=== PATIENT | female | born 2000 | race Caucasian/White ===

== ENCOUNTER → 2020-04-23 | Outpatient (REF) | payer BC ==
[~2020-04-23] MED LIST: PERC5TAB12 PO; ROBA500T PO
[2020-04-23 20:12] LABS: CHLAMYDIA DNA AMPLIFICATION POSITIVE (NEGATIVE); GC DNA AMPLIFICATION NEGATIVE (NEGATIVE)
== END ==
LOC: M SFHCLERA 15:37
PROVIDERS: ATTEND Physician Assistant
DX: R30.0 Dysuria (principal); Z20.9 Contact with and (suspected) exposure to unspecified communicable disease; A60.00 Herpesviral infection of urogenital system, unspecified

== ENCOUNTER → 2021-03-28 | Outpatient (CLI) | payer BC ==
--- NOTE | 2021-03-30 01:33 | ECWPNPC ---
PATIENT NAME: HUYEN CONNORS : 2000 GENDER: FEMALE VISIT DATE: 03/28/2021 DISCHARGE DATE: 03/28/21912 VISIT LOCKED DATE TIME: PHYSICIAN: AMNA CABRERA RESOURCE: AMNA CABRERA REASON FOR APPOINTMENT 1. FIBROMYALGIA HISTORY OF PRESENT ILLNESS DEPRESSION SCREENING: PHQ-2 (2015 EDITION) LITTLE INTEREST OR PLEASURE IN DOING THINGS?NOT AT ALL FEELING DOWN, DEPRESSED, OR HOPELESS?NOT AT ALL TOTAL SCORE0 GENERAL: HPI 20-YEAR-OLD FEMALE IN FOR INITIAL PAIN CONSULT REGARDING FIBROMYALGIA. PATIENT ADMITS TO BEING ON GABAPENTIN 300 MG TWICE DAILY FOR THE PAST 5 YEARS TO NO AVAIL. SHE FURTHER STATES SHE IS TAKING CYMBALTA TO HELP WITH HER SYMPTOMS. SHE RATES HER PAIN CURRENTLY AT A 6 OUT OF 10 AND DESCRIBES IT ACHING, CONTINUOUS, TENDER, THROBBING, SORE, SHOOTING, AND A GRINDING PAIN.. - - -. FALL RISK SCREENING: SCREENING : NO FALLS REPORTED IN THE LAST YEAR , : NO FALLS REPORTED IN THE LAST YEAR. PAIN SCREENING: PATIENT HAS A COMPLAINT OF ACUTE OR CHRONIC PAIN :YES LOCATION OF PAIN:LOW BACK, LEFT HIP, RIGHT HIP, LEG(S) INTENSITY OF PAIN (SCALE OF 1 TO 10):6 WHAT DOES YOUR PAIN FEEL LIKE:ACHING, CONTINOUS, TENDER, THROBBING, SORE, SHOOTING, OTHER "GRINDING" INTERMITTENT SHOOTING. DURATION:CONTINOUS, CONSTANT, AWAKENS FROM SLEEP SOMETIMES WAKES HER AT NIGHT PAIN IS INCREASED BY:ACTIVITIES, PROLONGED STANDING PROLONGED SITTING, WEATHER, LACK OF SLEEP PAIN IS DECREASED BY:OTHERS HOT BATH NURSING NOTE: - - -. PAIN CENTER INTAKE QUESTIONS: DO YOU HAVE A HISTORY OF MRSA? :NO DO YOU TAKE A BLOOD THINNERS? :NO DO YOU HAVE ANY BLEEDING DISORDERS? :NO ANY NEW NUMBNESS OR WEAKNESS IN YOUR LEGS OR ARMS? :NO ANY PACEMAKER,DEFIBRILLATOR, OR DORSAL COLUMN STIMULATOR? :NO DO YOU HAVE ANY RASHES OR OPEN SORES? :NO ARE YOU ALLERGIC TO IV DYE? :NO ARE YOU DIABETIC? :NO ANY NEW PROBLEMS WITH YOUR MEDICATIONS? :NO HAVE YOU RECEIVED A VACCINE IN THE PAST 30 DAYS? :NO DO YOU PLAN TO RECEIVE A VACCINE IN THE NEXT 21 DAYS? :NO DO YOU NEED ANY PRESCRIPTION? :NO DO YOU TAKE ANY IMMUNOSUPPRESSIVE MEDICATIONS? :NO IS THERE A CHANCE YOU COULD BE ? :NO ARE YOU BREAST FEEDING? :NO CURRENT MEDICATIONS TAKING PROPRANOLOL HCL 20 MG TABLET 1 TABLET ORALLY ONCE A DAY TAKING WELLBUTRIN SR 150 MG TABLET EXTENDED RELEASE 12 HOUR 1 TABLET IN THE MORNING ORALLY ONCE A DAY TAKING SUMATRIPTAN SUCCINATE 25 MG TABLET 1 TABLET AT LEAST 2 HOURS BETWEEN DOSES NEEDED ORALLY TWICE A DAY TAKING LAMICTAL 100 MG TABLET 1 TABLET ORALLY ONCE A DAY, NOTES: 125 MG TAKING CYMBALTA 60 MG CAPSULE DELAYED RELEASE PARTICLES 1 CAPSULE ORALLY ONCE A DAY TAKING GABAPENTIN 300 MG CAPSULE 1 CAPSULE ORALLY BID TAKING VYVANSE 20 MG CAPSULE 1 CAPSULE IN THE MORNING ORALLY ONCE A DAY TAKING VALTREX 1 GM TABLET 1 TABLET ORALLY BID, NOTES: TAKES NEEDED NOT-TAKING MEDROL (YADIRA) NOT-TAKING CYMBALTA NOT-TAKING GABAPENTIN NOT-TAKING PROPRANOLOL HCL NOT-TAKING ZITHROMAX 500 MG TABLET 2 TABLETS ORALLY ONCE A DAY NOT-TAKING FLAGYL 500 MG TABLET 1 TABLET ORALLY BID MEDICATION LIST REVIEWED AND RECONCILED WITH THE PATIENT PAST MEDICAL HISTORY PTSD RECURRENT MAJOR DEPRESSIVE DISORDER PANIC DISORDER BINGE EATING DISORDER GENERALIZED ANXIETY DISORDER CHRONIC HEMATURIA 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 SURGICAL HISTORY APPENDECTOMY 2018 NASAL ENDOSCOPY/SEPTOPLASTY/TURBINATE REDUCTION 2019 FAMILY HISTORY FATHER: ALIVE, PTSD SEVERE ANGER ISSUES ALCOHOL ABUSE MOTHER: ALIVE, HYPERLIPIDEMIA PRECANCEROUS CELLS IN UTERUS, DIAGNOSED WITH HYPERTENSION, DIABETES 2 BROTHER(S) , 1 SISTER(S) - HEALTHY. SOCIAL HISTORY GENERAL: TOBACCO USE ARE YOU A:NONSMOKER LATEX QUESTIONNAIRE LATEX ALLERGY : HAVE YOU EVER DEVELOPED ANY TYPE OF REACTION AFTER HANDLING LATEX PRODUCTS SUCH RUBBER GLOVES, CONDOMS, DIAPHRAGMS, BALLOONS, SOCKS, OR UNDERWEAR?NO LATEX ALLERGY : HAVE YOU EVER DEVELOPED ANY TYPE OF REACTION DURING OR AFTER DENTAL APPOINTMENT, VAGINAL/RECTAL EXAMINATION, SURGICAL PROCEDURE, OR ANY OTHER EXPOSURE?NO LATEX RISK : HAVE YOU EVER HAD ANY DIFFICULTY BREATHING OR HIVES AFTER EATING OR HANDLING ANY FRUITS, OR VEGETABLES; SUCH KIWI, BANANAS, STONE FRUITS, OR CHESTNUTSNO LATEX RISK : DO YOU HAVE A PREVIOUS PERSONAL HISTORY OF MORE THAN NINE SURGERIES, SPINA BIFIDA, OR REPEATED CATHERIZATIONS? NO LATEX RISK : ARE YOU FREQUENTLY EXPOSED TO LATEX PRODUCTS IN YOUR OCCUPATION?NO DATE ASKED : 03/28/2021 ALCOHOL USE: NO. ALCOHOL SCREENING DID YOU HAVE A DRINK CONTAINING ALCOHOL IN THE PAST YEAR?YES HOW OFTEN DID YOU HAVE A DRINK CONTAINING ALCOHOL IN THE PAST YEAR?TWO TO FOUR TIMES A MONTH (2 POINTS) HOW MANY DRINKS DID YOU HAVE ON A TYPICAL DAY WHEN YOU WERE DRINKING IN THE PAST YEAR?1 OR 2 (0 POINTS) HOW OFTEN DID YOU HAVE SIX OR MORE DRINKS ON ONE OCCASION IN THE PAST YEAR?NEVER (0 POINTS) POINTS2 INTERPRETATIONNEGATIVE RECREATIONAL DRUG USE DRUG USE?NO LANGUAGE LANGUAGES SPOKEN:NORWEGIAN EDUCATION LEVEL OF EDUCATION:NOT FINISHED COLLEGE LEARNING BARRIERS / SPECIAL NEEDS BARRIERS TO LEARNING?NO HEARING IMPAIRED?NO VISION IMPAIRED?NO COGNITIVELY IMPAIRED?NO READINESS TO LEARN?YES LEARNING PREFERENCES?NO LEARNING CAPABILITIES PRESENT?YES EMOTIONAL BARRIERS?NO SPECIAL DEVICES?NO COMPRESSOR MECHANIC BUS NEEDED?NO DOMESTIC VIOLENCE DO YOU FEEL SAFE IN YOUR ENVIRONMENT?YES OCCUPATION: WORKS AT A [employer]. DIET: REGULAR. EXERCISE: WALKS, STRETCHING. MARITAL STATUS: SINGLE. - HAS THE PATIENT BEEN EDUCATED REGARDING HIS/HER PLAN OF CARE?YES HAS THE PATIENT BEEN EDUCATED REGARDING PAIN, THE RISK FOR PAIN, THE IMPORTANCE OF EFFECTIVE PAIN MANAGEMENT, AND THE PAIN ASSESSMENT PROCESS?YES ADVANCE DIRECTIVE ADVANCE DIRECTIVE DISCUSSED WITH PATIENT:YES PATIENT DOES NOT HAVE ANY ADVANCED DIRECTIVES AND DECLINES INFORMATION ON HCP AT THIS TIME HOSPITALIZATION/MAJOR DIAGNOSTIC PROCEDURE SURGERY RELATED PNEUMONIA 2019 REVIEW OF SYSTEMS CONSTITUTIONAL: ANY RECENT FEVER NO . CHILLS NO . WEIGHT CHANGE OF UNKNOWN REASONS NO . MUSCULOSKELETAL: ANY UNUSUAL JOINT PAIN OR SWELLING NOT MENTIONED NO . SYSTEMIC LUPUS NO . ANY NEUROMUSCULAR DISORDER NOT MENTIONED NO . LYME DISEASE NO . GASTROENTEROLOGY: ANY NEW CHANGE IN BOWEL CONTROL? NO . HISTORY OF LIVER DISORDER NOT MENTIONED NO . HISTORY OF UNUSUAL ABDOMINAL PAIN OR CRAMPING NOT MENTIONED NO . NO CONSTIPATION. GENITOURINARY: ANY NEW CHANGE IN BLADDER CONTROL? NO . ANY RENAL/KIDNEY CONDITON NOT MENTIONED NO . NEUROLOGY: HISTORY OF TBI NOT MENTIONED NO . OTHER NEW NUMBNESS OR PAIN PATTERNS NOT MENTIONED NO . NEW ONSET DIZZINESS OR NEUROLOGICAL CHANGES NOT MENTIONED NO . HISTORY OF SEVERE HEADACHES NOT MENTIONED NO . HISTORY OF STROKE OR NEUROLOGICAL DISORDER NOT MENTIONED NO . CARDIOLOGY: HEART SURGERY NO . CONGESTIVE HEART FAILURE/FLUID OVERLOAD NOT MENTIONED NO . HISTORY OF CHEST PAIN,IRREGULAR HEART BEAT NOT MENTIONED NO . RESPIRATORY: SHORTNESS OF BREATH ON EXERTION, WHEEZES, UNUSUAL COUGH NOT MENTIONED NO . ENDOCRINOLOGY: ADRENAL GLAND OR THYROID DISORDERS NOT MENTIONED NO . UNUSUAL URINATION, DIZZINESS OR LETHARGY NOT MENTIONED NO . VITAL SIGNS WT 177.0 LBS, HT 64 IN, BMI 30.38 INDEX, BP 125/65 MM HG, HR 95 /MIN, RR 18 /MIN, TEMP 97.8 F, OXYGEN SAT % 100%, SAFE IN ENV? (Y/N) Y, NA INITIALS AW 0832, REVIEWED BY: Karie WORTHINGTON RN, LMP: 02/08/21. EXAMINATION GENERAL EXAMINATION: GENERALNO ACUTE DISTRESS, WELL NOURISHED AND HYDRATED. PSYCHAPPROPRIATE MOOD AND AFFECT . LUNGS:CLEAR TO AUSCULTATION BILATERALLY, NO WHEEZES, RHONCHI, RALES. HEART:NO MURMURS, REGULAR RATE AND RHYTHM. ASSESSMENTS FIBROMYALGIA - M79.7 (PRIMARY) TREATMENT FIBROMYALGIA START LYRICA CAPSULE, 75 MG, 1 CAPSULE, ORALLY, TWICE A DAY, 30 DAYS, 60 NOTES: 20-YEAR-OLD FEMALE IN FOR INITIAL PAIN CONSULT REGARDING FIBROMYALGIA. GIVEN PRESENTING SYMPTOMS RECOMMEND TAPERING OFF GABAPENTIN. TAPERING GABAPENTIN DOSE FOLLOWS 300 MG 1 CAPSULE DAILY X1 WEEK THEN 300 MG 1 CAPSULE EVERY OTHER DAY X1 WEEK THEN STOP. WE WILL START LYRICA 75 MG TWICE DAILY AND FOLLOW-UP IN 1 MONTH TO DETERMINE EFFICACY OF TREATMENT. PATIENT HAS EXPRESSED UNDERSTANDING OF AND WAS IN AGREEMENT WITH TREATMENT PLAN. GIVEN TIME ASKED QUESTIONS AND EXPRESS CONCERNS. ISTOP REGISTRY REVIEWED AND DEMONSTRATES COMPLLIANCE. (REF #[id number] ). PROCEDURE CODES FA211 ESTABILISHED PATIENT [facility] CHARGE DISPOSITION & COMMUNICATION ELECTRONICALLY SIGNED BY LYNETTE GREGORIO ON 03/29/2021 AT 09:00 AM EDT DISCLAIMER : THIS IS A VISIT SUMMARY EXTRACTED FROM THE [employer] CHART. IT IS NOT A COPY OF THE [employer] PROGRESS NOTE. MTDD
== END ==
LOC: M PAIN 08:30
PROVIDERS: ATTEND Family Medicine
DX: M79.7 Fibromyalgia (principal); F43.10 Post-traumatic stress disorder, unspecified; F33.9 Major depressive disorder, recurrent, unspecified; F41.0 Panic disorder [episodic paroxysmal anxiety]; F41.1 Generalized anxiety disorder; M51.16 Intervertebral disc disorders with radiculopathy, lumbar region; N94.6 Dysmenorrhea, unspecified; Z79.899 Other long term (current) drug therapy

== ENCOUNTER → 2021-04-28 | Outpatient (CLI) | payer BC ==
--- NOTE | 2021-05-02 00:47 | ECWPNPC ---
PATIENT NAME: HUYEN CONNORS : 2000 GENDER: FEMALE VISIT DATE: 04/28/2021 DISCHARGE DATE: 04/28/21 1006 VISIT LOCKED DATE TIME: PHYSICIAN: AMNA CBARERA RESOURCE: AMNA CABRERA REASON FOR APPOINTMENT 1. FIBROMYALGIA HISTORY OF PRESENT ILLNESS GENERAL: HPI 20-YEAR-OLD FEMALE IN FOR CHRONIC PAIN FOLLOW-UP. SHE RATES HER PAIN CURRENTLY A 5 OUT OF 10 AND DESCRIBES IT CONTINUOUS AND THROBBING. AT LAST CLINIC VISIT PATIENT WAS STARTED ON LYRICA AND SHE ADMITS TODAY THAT THIS WAS BENEFICIAL HOWEVER IT DOES NOT COMPLETELY COVER HER PAIN.. -. FALL RISK SCREENING: SCREENING : NO FALLS REPORTED IN THE LAST YEAR. PAIN SCREENING: PATIENT HAS A COMPLAINT OF ACUTE OR CHRONIC PAIN :YES LOCATION OF PAIN:OTHER: FIBROMYALGIA. INTENSITY OF PAIN (SCALE OF 1 TO 10):5 WHAT DOES YOUR PAIN FEEL LIKE:CONTINOUS, THROBBING DURATION:CONTINOUS, CONSTANT, AWAKENS FROM SLEEP PAIN IS INCREASED BY:ACTIVITIES, PROLONGED STANDING PAIN IS DECREASED BY:OTHERS HEAT NURSING NOTE: -. PAIN CENTER INTAKE QUESTIONS: DO YOU HAVE A HISTORY OF MRSA? :NO DO YOU TAKE A BLOOD THINNERS? :NO DO YOU HAVE ANY BLEEDING DISORDERS? :NO ANY NEW NUMBNESS OR WEAKNESS IN YOUR LEGS OR ARMS? :NO ANY PACEMAKER,DEFIBRILLATOR, OR DORSAL COLUMN STIMULATOR? :NO DO YOU HAVE ANY RASHES OR OPEN SORES? :NO ARE YOU ALLERGIC TO IV DYE? :NO ARE YOU DIABETIC? :NO ANY NEW PROBLEMS WITH YOUR MEDICATIONS? :NO HAVE YOU RECEIVED A VACCINE IN THE PAST 30 DAYS? :NO DO YOU PLAN TO RECEIVE A VACCINE IN THE NEXT 21 DAYS? :NO DO YOU NEED ANY PRESCRIPTION? :YES LYRICA 75 MG DO YOU TAKE ANY IMMUNOSUPPRESSIVE MEDICATIONS? :NO IS THERE A CHANCE YOU COULD BE ? :NO ARE YOU BREAST FEEDING? :NO CURRENT MEDICATIONS TAKING PROPRANOLOL HCL 20 MG TABLET 1 TABLET ORALLY ONCE A DAY TAKING WELLBUTRIN SR 150 MG TABLET EXTENDED RELEASE 12 HOUR 1 TABLET IN THE MORNING ORALLY ONCE A DAY TAKING SUMATRIPTAN SUCCINATE 25 MG TABLET 1 TABLET AT LEAST 2 HOURS BETWEEN DOSES NEEDED ORALLY TWICE A DAY TAKING LAMICTAL 100 MG TABLET 1 TABLET ORALLY ONCE A DAY, NOTES: 125 MG TAKING CYMBALTA 60 MG CAPSULE DELAYED RELEASE PARTICLES 1 CAPSULE ORALLY ONCE A DAY TAKING VYVANSE 30 MG CAPSULE 1 CAPSULE IN THE MORNING ORALLY ONCE A DAY TAKING VALTREX 1 GM TABLET 1 TABLET ORALLY BID, NOTES: TAKES NEEDED TAKING LYRICA 75 MG CAPSULE 1 CAPSULE ORALLY TWICE A DAY NOT-TAKING GABAPENTIN 300 MG CAPSULE 1 CAPSULE ORALLY BID NOT-TAKING MEDROL (YADIRA) NOT-TAKING CYMBALTA NOT-TAKING GABAPENTIN NOT-TAKING PROPRANOLOL HCL NOT-TAKING ZITHROMAX 500 MG TABLET 2 TABLETS ORALLY ONCE A DAY NOT-TAKING FLAGYL 500 MG TABLET 1 TABLET ORALLY BID MEDICATION LIST REVIEWED AND RECONCILED WITH THE PATIENT PAST MEDICAL HISTORY PTSD RECURRENT MAJOR DEPRESSIVE DISORDER PANIC DISORDER BINGE EATING DISORDER GENERALIZED ANXIETY DISORDER CHRONIC HEMATURIA 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 SOCIAL HISTORY GENERAL: TOBACCO USE ARE YOU A:NONSMOKER FORMER SMOKER LATEX QUESTIONNAIRE LATEX ALLERGY : HAVE YOU EVER DEVELOPED ANY TYPE OF REACTION AFTER HANDLING LATEX PRODUCTS SUCH RUBBER GLOVES, CONDOMS, DIAPHRAGMS, BALLOONS, SOCKS, OR UNDERWEAR?NO LATEX ALLERGY : HAVE YOU EVER DEVELOPED ANY TYPE OF REACTION DURING OR AFTER DENTAL APPOINTMENT, VAGINAL/RECTAL EXAMINATION, SURGICAL PROCEDURE, OR ANY OTHER EXPOSURE?NO LATEX RISK : HAVE YOU EVER HAD ANY DIFFICULTY BREATHING OR HIVES AFTER EATING OR HANDLING ANY FRUITS, OR VEGETABLES; SUCH KIWI, BANANAS, STONE FRUITS, OR CHESTNUTSNO LATEX RISK : DO YOU HAVE A PREVIOUS PERSONAL HISTORY OF MORE THAN NINE SURGERIES, SPINA BIFIDA, OR REPEATED CATHERIZATIONS? NO LATEX RISK : ARE YOU FREQUENTLY EXPOSED TO LATEX PRODUCTS IN YOUR OCCUPATION?NO DATE ASKED : 04/28/2021 ALCOHOL USE: NO. ALCOHOL SCREENING DID YOU HAVE A DRINK CONTAINING ALCOHOL IN THE PAST YEAR?YES HOW OFTEN DID YOU HAVE SIX OR MORE DRINKS ON ONE OCCASION IN THE PAST YEAR?NEVER (0 POINTS) HOW MANY DRINKS DID YOU HAVE ON A TYPICAL DAY WHEN YOU WERE DRINKING IN THE PAST YEAR?1 OR 2 (0 POINTS) HOW OFTEN DID YOU HAVE A DRINK CONTAINING ALCOHOL IN THE PAST YEAR?TWO TO FOUR TIMES A MONTH (2 POINTS) POINTS2 INTERPRETATIONNEGATIVE RECREATIONAL DRUG USE DRUG USE?NO LANGUAGE LANGUAGES SPOKEN:SERBIAN EDUCATION LEVEL OF EDUCATION:NOT FINISHED COLLEGE LEARNING BARRIERS / SPECIAL NEEDS CHANGE FROM LAST VISIT?NO BARRIERS TO LEARNING?NO HEARING IMPAIRED?NO VISION IMPAIRED?NO COGNITIVELY IMPAIRED?YES : SOME TIMES READINESS TO LEARN?YES LEARNING PREFERENCES?NO LEARNING CAPABILITIES PRESENT?YES EMOTIONAL BARRIERS?NO SPECIAL DEVICES?NO TRANSFORMATION LEAD NEEDED?NO DOMESTIC VIOLENCE DO YOU FEEL SAFE IN YOUR ENVIRONMENT?YES OCCUPATION: WORKS AT A [employer]. DIET: REGULAR. EXERCISE: WALKS, STRETCHING. MARITAL STATUS: SINGLE. - HAS THE PATIENT BEEN EDUCATED REGARDING HIS/HER PLAN OF CARE?YES HAS THE PATIENT BEEN EDUCATED REGARDING PAIN, THE RISK FOR PAIN, THE IMPORTANCE OF EFFECTIVE PAIN MANAGEMENT, AND THE PAIN ASSESSMENT PROCESS?YES ADVANCE DIRECTIVE ADVANCE DIRECTIVE DISCUSSED WITH PATIENT:YES PATIENT DOES NOT HAVE ANY ADVANCED DIRECTIVES AND DECLINES INFORMATION ON HCP AT THIS TIME REVIEW OF SYSTEMS CONSTITUTIONAL: ANY RECENT FEVER NO . CHILLS NO . WEIGHT CHANGE OF UNKNOWN REASONS NO . GASTROENTEROLOGY: NEW UNEXPLAINABLE CHANGES IN BOWEL CONTROL NO . CONSTIPATION NO . GENITOURINARY: ANY NEW CHANGE IN BLADDER CONTROL? NO . NEUROLOGY: NEW ONSET DIZZINESS OR NEUROLOGICAL CHANGES NOT MENTIONED NO . NEW NUMBNESS OR PAIN PATTERNS NOT MENTIONED AND PERTINENT TO TODAY'S VISIT NO . CARDIOLOGY: NEW CHEST PRESSURE NO . PATIENT DENIES NO . RESPIRATORY: UNEXPLAINABLE COUGH NO . NEW SHORTNESS OF BREATH NO . VITAL SIGNS WT 179.2 LBS, HT 64 IN, BMI 30.76 INDEX, BP 129/67 MM HG, HR 83 /MIN, RR 18 /MIN, TEMP 97.6 F, OXYGEN SAT % 96%, SAFE IN ENV? (Y/N) YES, NA INITIALS AW 0954T.DAVID SAGE. EXAMINATION GENERAL EXAMINATION: GENERALNO ACUTE DISTRESS, WELL NOURISHED AND HYDRATED. PSYCHAPPROPRIATE MOOD AND AFFECT . LUNGS:CLEAR TO AUSCULTATION BILATERALLY, NO WHEEZES, RHONCHI, RALES. HEART:NO MURMURS, REGULAR RATE AND RHYTHM. ASSESSMENTS FIBROMYALGIA - M79.7 TREATMENT FIBROMYALGIA INCREASE LYRICA CAPSULE, 100 MG, 1 CAPSULE, ORALLY, TWICE A DAY, 30 DAYS, 60 CAPSULE, REFILLS 1 NOTES: 20-YEAR-OLD FEMALE FOR CHRONIC PAIN FOLLOW-UP. GIVEN PRESENTING SYMPTOMS RECOMMEND INCREASING LYRICA TO 100 MG TWICE DAILY WITH FOLLOW-UP IN 2 MONTHS TO DETERMINE EFFICACY OF TREATMENT. PATIENT IS EXPRESSED UNDERSTANDING OF AND WAS IN AGREEMENT WITH TREATMENT PLAN. GIVEN TIME TO ASK QUESTIONS AND EXPRESS CONCERNS. ISTOP REGISTRY REVIEWED AND DEMONSTRATES COMPLLIANCE. (REF # [id number] ). PROCEDURE CODES FA211 ESTABILISHED PATIENT [facility] CHARGE DISPOSITION & COMMUNICATION FOLLOW UP 2 MONTHS (REASON: MEDICATION INCREASE ) ELECTRONICALLY SIGNED BY LYNETTE GREGORIO ON 05/01/2021 AT 08:20 AM EDT DISCLAIMER : THIS IS A VISIT SUMMARY EXTRACTED FROM THE [employer] CHART. IT IS NOT A COPY OF THE [employer] PROGRESS NOTE. JEAN CLAUDE
== END ==
LOC: M PAIN 10:00
PROVIDERS: ATTEND Family Medicine
DX: M79.7 Fibromyalgia (principal); F43.10 Post-traumatic stress disorder, unspecified; F33.9 Major depressive disorder, recurrent, unspecified; F41.0 Panic disorder [episodic paroxysmal anxiety]; F50.81 Binge eating disorder; F41.1 Generalized anxiety disorder; M51.16 Intervertebral disc disorders with radiculopathy, lumbar region; N94.6 Dysmenorrhea, unspecified; Z87.891 Personal history of nicotine dependence; Z79.899 Other long term (current) drug therapy

== ENCOUNTER → 2021-06-29 | Outpatient (CLI) | payer BC | LOC: M PAIN 10:30 | PROVIDERS: ATTEND Anesthesiology | DX: M79.7 Fibromyalgia (principal); F43.10 Post-traumatic stress disorder, unspecified; F33.9 Major depressive disorder, recurrent, unspecified; F41.0 Panic disorder [episodic paroxysmal anxiety]; Z79.891 Long term (current) use of opiate analgesic; Z79.899 Other long term (current) drug therapy ==

== ENCOUNTER → 2021-08-11 | Outpatient (CLI) | payer BC | LOC: M PAIN 13:30 | PROVIDERS: ATTEND Anesthesiology | DX: M79.7 Fibromyalgia (principal); M51.16 Intervertebral disc disorders with radiculopathy, lumbar region; M25.551 Pain in right hip; M25.552 Pain in left hip; M79.661 Pain in right lower leg; M79.662 Pain in left lower leg; F43.10 Post-traumatic stress disorder, unspecified; F33.9 Major depressive disorder, recurrent, unspecified; F41.0 Panic disorder [episodic paroxysmal anxiety]; F41.1 Generalized anxiety disorder; F50.81 Binge eating disorder; Z87.891 Personal history of nicotine dependence; Z79.899 Other long term (current) drug therapy ==

== ENCOUNTER 2021-09-09 12:37 | Emergency (ER) | payer BC ==
[~2021-09-09] VITALS: Ht 162.6 cm; Wt 82.6 kg
--- OUTSIDE RECORDS SUMMARY | 2021-09-09 12:46 | CCD ---
Author Author [employer] [facility] [employer] Organization [employer] Address Unknown Phone Unavailable Care Team Providers Care Fish Boning Machine Feeder Name Role Phone Allen, Tate Unavailable PROBLEMS Type Condition ICD9-CM Code XST51-IA Code Onset Dates Condition S tatus W/U Status Risk SNOMED Code Notes Problem Genital herpes simplex, unspecified site A60.00 Active confirmed 88179616 Problem Fibromyalgia M79.7 Active confirmed 8901837 05 ALLERGIES No Known Allergies ENCOUNTERS from 2000 to 2021-08-29 Encounter Location Date Provider Diagnosis [facility] [address] Floor [phone] [place] [address] Aug, Tate Allen IMMUNIZATIONS No Information SOCIAL HISTORY Tobacco Use: Social History Observation Description Date Details (start date - stop date) Never Smoker Sex Assigned At : Social History Observation Description Sex Assigned At Unknown Education: Question Answer Notes Level of Education: Not Finished College Language: Question Answer Notes Languages spoken: Lithuanian Alcohol Screening: Question Answer Notes Did you have a drink containing alcohol in the past year? Ye s Points 2 Interpretation Negative How often did you have six or more drinks on one occas ion in the past year? Never (0 points) How many drinks did you have on a typica l day when you were drinking in the past year? 1 or 2 (0 points) How often did you have a drink containing alcohol in t he past year? Two to four times a month (2 points) Tobacco Use: Question Answer Notes Are you a: never smoker former smoker REASON FOR REFERRAL No Information VITAL SIGNS No information MEDICATIONS Medication SIG (Take, Route, Frequency, Duration) Notes Start Da te End Date Status Valtrex 1 GM 1 tablet Orally bid for 10 day(s) Takes as needed Apr Active Propranolol HCl Not-Takin g Gabapentin Not-Taking Cymbalta 60 MG 1 capsule Orally Twice a day for 30 days Active Ibuprofen 800 MG 1 tablet with food or milk a s needed Orally Three times a day for 30 days Jun, Active Wellbutrin SR 150 MG 1 tablet in the morning Orally Once a day f or 30 day(s) Not-Taking Lyrica 150 MG 1 capsule Orally Twice a day for 30 days Aug, Active Cymbalta Not-Taking Propranolol HCl 20 MG 1 tablet Orally Once a day for 30 day( s) when heart rate increases Active Medrol (Leif) Not-Taking Zithromax 500 MG 2 tablets Orally Once a day for 1 days Apr, Not-Taking SUMAtriptan Succinate 25 MG 1 tablet at least 2 hours between doses as needed Orally Twice a day with migraines Active Vyvanse 30 MG 1 capsule in the morning Orally Once a day Active Flagyl 500 MG 1 tablet Orally bid for 7 day(s) Apr, 0 Not-Taking Gabapentin 300 MG 1 capsule Orally bid Not-Taking LaMICtal 100 MG 1 tablet Orally Once a day for 30 day(s) 125 MG Active PROCEDURES No Information RESULTS No Results REASON FOR VISIT DENIAL MRI PELVIS WITHOUT CONTRAST MEDICAL (GENERAL) HISTORY Type Description Date Medical History PTSD Medical History RECURRENT MAJOR DEPRESSIVE DISORDER Medical History PANIC DISORDER Medical History BINGE EATING DISORDER Medical History GENERALIZED ANXIETY DISORDER Medical History CHRONIC HEMATURIA Medical History 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 Medical History POTS Medical History TONSILLITIS Medical History DYSMENORRHEA Medical History dYSFUNCTIONAL UTERINE BLEEDING Medical History BULGING LUMBAR DISC Medical History LUMBAR RADICULOPATHY Medical History FIBROMYALGIA Surgical History APPENDECTOMY 2018 Surgical History NASAL ENDOSCOPY/SEPTOPLASTY/TURBINATE RE DUCTION 2019 Hospitalization History SURGERY RELATED Hospitalization History PNEUMONIA 2019 Goals Section No Information Health Concerns No Information MEDICAL EQUIPMENT No Information MENTAL STATUS No Information FUNCTIONAL STATUS No Information ASSESSMENTS No Information PLAN OF TREATMENT Medication Medication Name Sig Start Date Stop Date Ibuprofen 800 MG 1 tablet with food or milk a s needed Orally Three times a day for 30 days Jun, Lyrica 150 MG 1 capsule Orally Twice a day for 30 days Aug, Cymbalta 60 MG 1 capsule Orally Twice a day for 30 days Insurance Providers Payer Name Payer Address Payer Phone Insured Name Patient Relati onship to Insured Coverage Start Date Coverage End Date TIFFANIE BS PPO [address] [place] [id number] NORRIS CONNORS
--- OUTSIDE RECORDS SUMMARY | 2021-09-09 12:46 | CCD ---
Author Author [employer] [facility] Organization [employer] Address Unknown Phone Unavailable Care Team Providers Care Chief Catalyst Operator Name Role Phone Allen, Tate Unavailable PROBLEMS Type Condition ICD9-CM Code [id number] Code Onset Dates Condition S tatus W/U Status Risk SNOMED Code Notes Problem Genital herpes simplex, unspecified site A60.00 Active confirmed 03844397 Problem Fibromyalgia M79.7 Active confirmed [id number] 05 ALLERGIES No Known Allergies ENCOUNTERS from 1999 to 2021-07-28 Encounter Location Date Provider Diagnosis [facility] [address] Floor [phone] [place] [address] Jul, Tate Allen IMMUNIZATIONS No Information SOCIAL HISTORY Tobacco Use: Social History Observation Description Date Details (start date - stop date) Never Smoker Sex Assigned At : Social History Observation Description Sex Assigned At Unknown Education: Question Answer Notes Level of Education: Not Finished College Language: Question Answer Notes Languages spoken: Singaporean Alcohol Screening: Question Answer Notes Did you [...] 10 day(s) Takes as needed Apr Active Vyvanse 30 MG 1 capsule in the morning Orally Once a day Active Ibuprofen 800 MG 1 tablet with food or milk a s needed Orally Three times a day for 30 days Jun, Active LaMICtal 100 MG 1 tablet Orally Once a day for 30 day(s) 125 MG Active SUMAtriptan Succinate 25 MG 1 tablet at least 2 hours between doses as needed Orally Twice a day with migraines Active Zithromax 500 MG 2 tablets Orally Once a day for 1 days Apr, Unknown Cymbalta 60 MG 1 capsule Orally Twice a day for 30 day(s) Active Propranolol HCl Unknown Wellbutrin SR 150 MG 1 tablet in the morning Orally Once a day f or 30 day(s) Not-Taking Flagyl 500 MG 1 tablet Orally bid for 7 day(s) Apr, Unknown Cymbalta Unknown Gabapentin Unknown Medrol (Leif) Unknown Lyrica 100 MG 1 capsule Orally Twice a day for 30 days Jun, Active Propranolol HCl 20 MG 1 tablet Orally Once a day for 30 day( s) when heart rate increases Active Gabapentin 300 MG 1 capsule Orally bid Unknown PROCEDURES No Information RESULTS No Results REASON FOR VISIT PLEASE SCHEDULE F/U MEDICAL (GENERAL) HISTORY Type Description Date Medical [...] Medication Name Sig Start Date Stop Date Cymbalta 60 MG 1 capsule Orally Twice a day for 30 day(s) Lyrica 100 MG 1 capsule Orally Twice a day for 30 days Jun, Ibuprofen 800 MG 1 tablet with food or milk a s needed Orally Three times a day for 30 days Jun, Next Appt Details Provider Name:Tate Allen, 2021-08-11 01:30:00 PM, [address], , [place], [address], Insurance Providers Payer Name Payer Address Payer Phone Insured Name Patient Relati onship to Insured Coverage Start Date Coverage End Date TIFFANIE BS PPO [phone] [id number] NORRIS CONNORS
--- OUTSIDE RECORDS SUMMARY | 2021-09-09 12:46 | CCD ---
Author Author [facility] Organization [facility] Address Unknown Phone Unavailable Care Team Providers Care Principal Secretary Name Role Phone Grupoearl Win Unavailable PROBLEMS Type Condition ICD9-CM Code [id number] Code Onset Dates Condition S tatus W/U Status Risk SNOMED Code Notes Problem Genital herpes simplex, unspecified site A60.00 Active confirmed 78964124 Problem Fibromyalgia M79.7 Active confirmed [id number] 05 ALLERGIES No Known Allergies ENCOUNTERS from 1999 to 2021-09-04 Encounter Location Date Provider Diagnosis [id number] [place] [address] Aug, Win Adam IMMUNIZATIONS No Information SOCIAL HISTORY Tobacco Use: Social History Observation Description Date Details (start date - stop date) Never Smoker Sex Assigned At : Social History Observation Description Sex Assigned At Unknown Education: Question Answer Notes Level of Education: Not Finished College Language: Question Answer Notes Languages spoken: Romansh Alcohol Screening: Question Answer Notes Did you [...] Information RESULTS No Results REASON FOR VISIT new patient apt MEDICAL (GENERAL) HISTORY Type Description Date Medical [...] Orally Twice a day for 30 days Next Appt Details Provider Name:Win Adam, 2021-11 08:30:00 AM, [address], , [place], [address], Insurance Providers Payer Name Payer Address Payer Phone Insured Name Patient Relati onship to Insured Coverage Start Date Coverage End Date TIFFANIE BS PPO [phone] [id number] [place]
--- OUTSIDE RECORDS SUMMARY | 2021-09-09 12:46 | CCD ---
Author Author [facility] Organization [facility] Address Unknown Phone Unavailable Care Team Providers Care Rollout Manager Name Role Phone Allen, Tate Unavailable PROBLEMS Type Condition ICD9-CM Code [id number] Code Onset Dates Condition S tatus W/U Status Risk SNOMED Code Notes Problem Genital herpes simplex, unspecified site A60.00 Active confirmed 90693353 Problem Fibromyalgia M79.7 Active confirmed 2565988 05 ALLERGIES No Known Allergies ENCOUNTERS from 1999 to 2021-07-13 Encounter Location Date Provider Diagnosis [facility] [address] Floor [phone] [place] [address] Jun, Tate Allen IMMUNIZATIONS No Information SOCIAL HISTORY Tobacco Use: Social History Observation Description Date Details (start date - stop date) Never Smoker Sex Assigned At : Social History Observation Description Sex Assigned At Unknown Education: Question Answer Notes Level of Education: Not Finished College Language: Question Answer Notes Languages spoken: Malagasy Alcohol Screening: Question Answer Notes Did you [...] Information RESULTS No Results REASON FOR VISIT FOLLOW UP AFTER PAIN APPOINTMENT MEDICAL (GENERAL) HISTORY Type Description Date Medical [...] times a day for 30 days Jun, Insurance Providers Payer Name Payer Address Payer Phone Insured Name Patient Relati onship to Insured Coverage Start Date Coverage End Date TIFFANIE BC[employer] PPO [phone] [phone] [place]
--- OUTSIDE RECORDS SUMMARY | 2021-09-09 12:46 | CCD ---
Author Author [facility] Organization [facility] Address Unknown Phone Unavailable Care Team Providers Care Admissions Supervisor Name Role Phone Tate Allen Unavailable PROBLEMS Type Condition ICD9-CM Code [id number] Code Onset Dates Condition S tatus W/U Status Risk SNOMED Code Notes Problem Genital herpes simplex, unspecified site A60.00 Active confirmed [id number] Problem Fibromyalgia M79.7 Active confirmed 3940924 05 ALLERGIES No Known Allergies ENCOUNTERS from 1999 to 2021-07-02 Encounter Location Date Provider Diagnosis [facility] [address] Floor [phone] [place] [address] Jun, Tate Allen Fibromyalgia M79.7 a nd Chronic prescription opiate use Z79.891 IMMUNIZATIONS No Information SOCIAL HISTORY Tobacco Use: Social History Observation Description Date Details (start date - stop date) Never Smoker Sex Assigned At : Social History Observation Description Sex Assigned At Unknown Education: Question Answer Notes Level of Education: Not Finished College Language: Question Answer Notes Languages spoken: Macanese Alcohol Screening: Question Answer Notes Did you [...] never smoker former smoker REASON FOR REFERRAL from 1999 to 2021-07-02 Reason 21 year old with history of fibromyalgia. Experiencing increased diffuse joint pain, fatigue. Please evaluate. Diagnosis 1 Fibromyalgia (M79.7) Referral Organization [facility] Pain Clinic Referring Provider First Name Tate Referring Provider Last Name Tiffany Referring Provider Specialty Pain Medicine Referred Organization [facility] Rheumatology Referred Provider Josie Foster Referred Address [address] [place] [phone] 8-[address], [place],[address] Referred Provider Specialty Rheumatology Referral Priority Routine Reason 21 year old female with incr eased diffuse joint pain, please evaluate. Diagnosis 1 Fibromyalgia (M79.7) Referral Organization [facility] Referring Provider First Name Tate Referring Provider Last Name Tiffany Referring Provider Specialty Pain Medicine [facility]erred Provider Specialty Unknown Referral Priority Routine VITAL SIGNS Weight 176.4 lbs Jun, Weight-kg 80.01 kg Jun, Height 64 in Jun, BMI 30.28 kg/m2 Jun, Heart Rate 96 /min Jun, Respiratory Rate 18 /min Jun, Temperature 99.0 degrees Fahrenheit Jun, Oximetry 100% Jun, Blood pressure systolic 126 mm Hg Jun, Blood pressure diastolic 68 mm Hg Jun, MEDICATIONS Medication SIG (Take, Route, Frequency, Duration) [...] Orally bid for 7 day(s) Apr, 0 Unknown Cymbalta Unknown Gabapentin Unknown Medrol (Leif) Unknown Lyrica 100 MG 1 capsule Orally Twice a day for 30 days Jun, Active Propranolol HCl 20 MG 1 tablet Orally Once a day for 30 day( s) when heart rate increases Active Gabapentin 300 MG 1 capsule Orally bid Unknown PROCEDURES No Information RESULTS No Results REASON FOR VISIT FIBROMYALGIA MEDICAL (GENERAL) HISTORY Type Description Date Medical [...] No Information FUNCTIONAL STATUS No Information ASSESSMENTS Encounter Date Diagnosis Assessment Notes Treatment Notes Treatm ent Clinical Notes Jun, Fibromyalgia (ICD-10 - M79.7) gave education on all meds prescribed Dr. Allen and I discussed with the patient and the plan of care will be to refill her lyrica, start Cymbalta 60mg once a day x2 weeks then increase to twice daily. She has been on cymbalta 60mg until recently and stopped the medication as she wasn't sure if it was helpful. We will see if she finds more benefit with the increased dosage. We will also start the patient on Ibuprofen 800mg, three times daily as needed for pain. I discussed with the patient the importance of not stopping lyrica or cymbalta abruptly and taking her medications as prescribed. I also discussed the importance of taking ibuprofen as needed with food, not taking other NSAIDS. ISTOP registry reviewed and demonstrates compliance. We will obtain urine toxicology today. The patient is not currently following with Rheumatology so we will refer today given her diffuse joint pain, exacerbated symptoms. The patient wouldd also like a referral to palliative care to discuss medicinal marijuana, we will refer today. We will follow up in 3-4 weeks to see how she is responding to her medication regimen. Instructed the patient to call the office with any questions or concerns. She verbalized understanding and is agreeable to the plan of care. [facility] Jun, Chronic prescription opiate use (ICD-10 - Z79.89 1) PLAN OF TREATMENT Medication Medication Name Sig Start Date Stop Date Cymbalta 60 MG 1 capsule Orally Twice a day for 30 day(s) Lyrica 100 MG 1 capsule Orally Twice a day for 30 days Jun, Ibuprofen 800 MG 1 tablet with food or milk a s needed Orally Three times a day for 30 days Jun, Treatment Notes Assessment Notes Clinical Notes Fibromyalgia gave education on all meds prescribed Dr Gauri Allen and I discussed with the patient and the plan of care will be to refill her lyrica, start Cymbalta 60mg once a day x2 weeks then increase to twice daily. She has been on cymbalta 60mg until recently and stopped the medication as she wasn't sure if it was helpful. We will see if she finds more benefit with the increased dosage. We will also start the patient on Ibuprofen 800mg, three times daily as needed for pain. I discussed with the patient the importance of not stopping lyrica or cymbalta abruptly and taking her medications as prescribed. I also discussed the importance of taking ibuprofen as needed with food, not taking other NSAIDS. ISTOP registry reviewed and demonstrates compliance. We will obtain urine toxicology today. The patient is not currently following with Rheumatology so we will refer today given her diffuse joint pain, exacerbated symptoms. The patient wouldd also like a referral to palliative care to discuss medicinal marijuana, we will refer today. We will follow up in 3-4 weeks to see how she is responding to her medication regimen. Instructed the patient to call the office with any questions or concerns. She verbalized understanding and is agreeable to the plan of care.[facility] Treatment Notes Test Name Order Date Urine Test Group 2021-06-29 Referrals Referral Date Details 21 year old with history of fibromyalgia. Experiencing increased diffuse joint pain, fatigue. Please evaluate., Josie Foster, [address] [place] [address], [place], [address], 21 year old female with incr eased diffuse joint pain, please evaluate., of [facility] Next Appt Details 3-4 weeks Reason:fibromyalgia, new med s tart Follow Up:3-4 weeksfibromyalgia, new med start Insurance Providers Payer Name Payer Address Payer Phone Insured Name Patient Relati onship to Insured Coverage Start Date Coverage End Date TIFFANIE BS PPO [address] [id number] [place]
--- OUTSIDE RECORDS SUMMARY | 2021-09-09 12:47 | CCD ---
Author Author [facility] Organization [facility] Address Unknown Phone Unavailable Care Team Providers Care Furniture Decals Inspector Name Role Phone Catrina GARCIA MD Unavailable Unavailable Catrina GARCIA MD Unavailable Unavailable Catrina GARCIA MD Unavailable Unavailable Catrina GARCIA MD Unavailable Unavailable Catrina GARCIA MD Unavailable Unavailable Catrina GARCIA MD Unavailable Unavailable Cartina GARCIA MD Unavailable Unavailable Catrina GARCIA MD Unavailable Unavailable Catrina GARCIA MD Unavailable Unavailable Catrina GARCIA MD Unavailable Unavailable Catrina GARCIA MD Unavailable Unavailable Catrina GARCIA MD Unavailable Unavailable Catrina GARCIA MD Unavailable Unavailable Catrina GARCIA MD Unavailable Unavailable Catrina GARCIA MD Unavailable Unavailable SWINWOOD, FELTON OVEN WORKER Unavailable Unavailable SWINWOOD, FELTON OVEN WORKER Unavailable Unavailable SWINWOOD, FELTON OVEN WORKER Unavailable Unavailable SWINWOOD, FELTON OVEN WORKER Unavailable Unavailable SWINWOOD, FELTON OVEN WORKER Unavailable Unavailable SWINWOOD, FELTON OVEN WORKER Unavailable Unavailable SWINWOOD, FELTON OVEN WORKER Unavailable Unavailable SWINWOOD, FELTON OVEN WORKER Unavailable Unavailable SWINWOOD, FELTON OVEN WORKER Unavailable Unavailable SWINWOOD, FELTON OVEN WORKER Unavailable Unavailable SWINWOOD, FELTON OVEN WORKER Unavailable Unavailable SWINWOOD, FELTON OVEN WORKER Unavailable Unavailable SWINWOOD, FELTON OVEN WORKER Unavailable Unavailable SWINWOOD, FELTON OVEN WORKER Unavailable Unavailable SWINWOOD, FELTON OVEN WORKER Unavailable Unavailable SWINWOOD, FELTON OVEN WORKER Unavailable Unavailable SWINWOOD, FELTON OVEN WORKER Unavailable Unavailable SWINWOOD, FELTON OVEN WORKER Unavailable Unavailable SWINWOOD, FELTON OVEN WORKER Unavailable Unavailable SWINWOOD, FELTON OVEN WORKER Unavailable Unavailable SWINWOOD, FELTON OVEN WORKER Unavailable Unavailable HINS, SHEFALI PA Unavailable Unavailable HINS, SHEFALI PA Unavailable Unavailable HINS, SHEFALI PA Unavailable Unavailable HINS, SHEFALI PA Unavailable Unavailable HINS, SHEFALI PA Unavailable Unavailable HINS, SHEFALI PA Unavailable Unavailable HINS, SHEFALI PA Unavailable Unavailable HINS, SHEFALI PA Unavailable Unavailable Estella Pelaez, [facility] Unavailable Unavailable MARAVEGIAS, Avis PANCHAL MD Unavailable Unavailable MARAVEGIAS, Avis PANCHAL MD Unavailable Unavailable MARAVEGIAS, Avis PANCHAL MD Unavailable Unavailable MARAVEGIAS, Avis PANCHAL MD Unavailable Unavailable MARAVEGIAS, Avis PANCHAL MD Unavailable Unavailable MARAVEGIAS, Avis PANCHAL MD Unavailable Unavailable MARAVEGIAS, Avis PANCHAL MD Unavailable Unavailable MARAVEGIAS, Avis PANCHAL MD Unavailable Unavailable MARAVEGIAS, Avis PANCHAL MD Unavailable Unavailable MARAVEGIAS, Avis PANCHAL MD Unavailable Unavailable MARAVEGIAS, Avis PANCHAL MD Unavailable Unavailable MARAVEGIAS, Avis PANCHAL MD Unavailable Unavailable MARAVEGIAS, Avis PANCHAL MD Unavailable Unavailable MARAVEGIAS, N ISMACO MONROE Unavailable Unavailable LETTIERE, A STEPHANIE PA Unavailable Unavailable LETTIERE, A STEPHANIE PA Unavailable Unavailable LETTIERE, A STEPHANIE PA Unavailable Unavailable LETTIERE, A STEPHANIE PA Unavailable Unavailable LETTIERE, A STEPHANIE PA Unavailable Unavailable LETTIERE, A STEPHANIE PA Unavailable Unavailable LETTIERE, A STEPHANIE PA Unavailable Unavailable LETTIERE, A STEPHANIE PA Unavailable Unavailable LETTIERE, A STEPHANIE PA Unavailable Unavailable LETTIERE, A STEPHANIE PA Unavailable Unavailable LETTIERE, A STEPHANIE PA Unavailable Unavailable LETTIERE, A STEPHANIE PA Unavailable Unavailable LETTIERE, A STEPHANIE PA Unavailable Unavailable LETTIERE, A STEPHANIE PA Unavailable Unavailable LETTIERE, A STEPHANIE PA Unavailable Unavailable LETTIERE, A STEPHANIE PA Unavailable Unavailable LETTIERE, A STEPHANIE PA Unavailable Unavailable LETTIERE, A STEPHANIE PA Unavailable Unavailable LETTIERE, A STEPHANIE PA Unavailable Unavailable LETTIERE, A STEPHANIE PA Unavailable Unavailable LETTIERE, A STEPHANIE PA Unavailable Unavailable LETTIERE, A STEPHANIE PA Unavailable Unavailable LETTIERE, A STEPHANIE PA Unavailable Unavailable LETTIERE, A STEPHANIE PA Unavailable Unavailable LETTIERE, A STEPHANIE PA Unavailable Unavailable LETTIERE, A STEPHANIE PA Unavailable Unavailable LETTIERE, A STEPHANIE PA Unavailable Unavailable LETTIERE, A STEPHANIE PA Unavailable Unavailable LETTIERE, A STEPHANIE PA Unavailable Unavailable LETTIERE, A STEPHANIE PA Unavailable Unavailable LETTIERE, A STEPHANIE PA Unavailable Unavailable Felton L Swinwood, L AIR TANK ASSEMBLER-C AIR TANK ASSEMBLER Unavailable Unavailable Felton L Swinwood, L AIR TANK ASSEMBLER-C AIR TANK ASSEMBLER Unavailable Unavailable MOVSAS, LAURA DO Unavailable Unavailable MOVSAS, LAURA DO Unavailable Unavailable MOVSAS, LAURA DO Unavailable Unavailable MOVSAS, LAURA DO Unavailable Unavailable MOVSAS, LAURA DO Unavailable Unavailable MOVSAS, LAURA DO Unavailable Unavailable MOVSAS, LAURA DO Unavailable Unavailable MOVSAS, LAURA DO Unavailable Unavailable MOVSAS, LAURA DO Unavailable Unavailable MOVSAS, LAURA DO Unavailable Unavailable MOVSAS, LAURA DO Unavailable Unavailable MOVSAS, LAURA DO Unavailable Unavailable MOVSAS, LAURA DO Unavailable Unavailable MOVSAS, LAURA DO Unavailable Unavailable MOVSAS, LAURA DO Unavailable Unavailable MOVSAS, LAURA DO Unavailable Unavailable MOVSAS, ALURA DO Unavailable Unavailable MOVSAS, LAURA DO Unavailable Unavailable Mell, L Sasha PA Unavailable Unavailable Mell, L Sasha PA Unavailable Unavailable Mell, L Sasha PA Unavailable Unavailable Mell, L Sasha PA Unavailable Unavailable Mell, L Sasha PA Unavailable Unavailable Mell, L Sasha PA Unavailable Unavailable Mell, L Sasha PA Unavailable Unavailable Mell, L Sasha PA Unavailable Unavailable Mell, L Sasha PA Unavailable Unavailable Mell, L Sasha PA Unavailable Unavailable Mell, L Sasha PA Unavailable Unavailable Mell, L Sasha PA Unavailable Unavailable Mell, L Sasha PA Unavailable Unavailable Mell, L Sasha PA Unavailable Unavailable Mell, L Sasha PA Unavailable Unavailable Mell, L Sasha PA Unavailable Unavailable Mell, L Sasha PA Unavailable Unavailable Mell, L Sasha PA Unavailable Unavailable Mell, L Sasha PA Unavailable Unavailable Mell, L Sasha PA Unavailable Unavailable Mell, L Sasha PA Unavailable Unavailable Mell, L Sasha PA Unavailable Unavailable Mell, L Sasha PA Unavailable Unavailable Mell, L Sasha PA Unavailable Unavailable Mell, L Sasha PA Unavailable Unavailable Mell, L Sasha PA Unavailable Unavailable Mell, L Sasha PA Unavailable Unavailable Mell, L Sasha PA Unavailable Unavailable Mell, L Sasha PA Unavailable Unavailable Mell, L Sasha PA Unavailable Unavailable Mell, L Sasha PA Unavailable Unavailable Mell, L Sasha PA Unavailable Unavailable Mell, L Sasha PA Unavailable Unavailable Mell, L Sasha PA Unavailable Unavailable Mell, L Assha PA Unavailable Unavailable Mell, L Sasha PA Unavailable Unavailable Mell, L Sasha PA Unavailable Unavailable Mell, L Sasha PA Unavailable Unavailable Mell, L Sasha PA Unavailable Unavailable Mell, L Sasha PA Unavailable Unavailable Mell, L Sasha PA Unavailable Unavailable UNKNOWN Unavailable Unavailable Fede, Tiny OVEN WORKER Unavailable Unavailable Fede, Tiny OVEN WORKER Unavailable Unavailable Fede, Tiny OVEN WORKER Unavailable Unavailable Fede, Tiny OVEN WORKER Unavailable Unavailable Fede, Tiny OVEN WORKER Unavailable Unavailable Fede, Tiny OVEN WORKER Unavailable Unavailable Fede, Tiny OVEN WORKER Unavailable Unavailable Fede, Tiny OVEN WORKER Unavailable Unavailable Fede, Tiny OVEN WORKER Unavailable Unavailable Fede, Tiny OVEN WORKER Unavailable Unavailable Re-disclosure Warning The records that you are about to access may contain information from federally-assisted alcohol or drug abuse programs. If such information is present, then the following federally mandated warning applies: This information has been disclosed to you from records protected by federal confidentiality rules (42 CFR part 2). The federal rules prohibit you from making any further disclosure of this information unless further disclosure is expressly permitted by the written consent of the person to whom it pertains or as otherwise permitted by 42 CFR part 2. A general authorization for the release of medical or other information is NOT sufficient for this purpose. The Federal rules restrict any use of the information to criminally investigate or prosecute any alcohol or drug abuse patient.The records that you are about to access may contain highly sensitive health information, the redisclosure of which is protected by Article 27-F of the [facility] Public Health law. If you continue you may have access to information: Regarding HIV / AIDS; Provided by facilities licensed or operated by the [facility] Office of Mental Health; or Provided by the [facility] Office for People With Developmental Disabilities. If such information is present, then the following [facility] mandated warning applies: This information has been disclosed to you from confidential records which are protected by state law. State law prohibits you from making any further disclosure of this information without the specific written consent of the person to whom it pertains, or as otherwise permitted by law. Any unauthorized further disclosure in violation of state law may result in a fine or mcc sentence or both. A general authorization for the release of medical or other information is NOT sufficient authorization for further disc losure. Allergies and Adverse Reactions Type Description Substance Reaction Status Data Source(s ) Drug allergy Drug allergy No Known Allergies [facility] Family History Family Member Name Family Member Gender Family Member Status Date o f Status Description Data Source(s) Unknown Unknown Problem MEDENT ([facility]) Unknown Male Problem MEDENT ([facility]) Unknown Unknown Problem MEDENT ([facility], ) Encounters Encounter Providers Location Date Indications Data Source(s ) Unknown [address] [facility] [place] [address] 08/30/2021 12:00:00 AM EST eCW1 ([facility]) Unknown [address] [facility] [place] [address] 08/25/2021 12:00:00 AM EST eCW1 ([facility]) Outpatient [address] [facility] [place] [address] 08/11/2021 12:00:00 AM EDT eCW1 ([facility]) Unknown [address] [facility] [place] [address] 07/27/2021 12:00:00 AM EDT eCW1 ([facility]) Outpatient Attender: [facility] Estella Pelaez [facility] 05:00:00 PM EDT - 07/26/2021 05:01:00 PM T [facility] Patient discharged. Preadmit Attender: AMY GARCIA MD [facility] 07/07/2021 12:00:00 AM T [facility] Outpatient Attender: AMY GARCIA MD [facility] 2020 05:30:00 PM EDT - 07/06/2021 05:31:00 PM EDT [facility] Patient discharged. Outpatient Attender: CAROLYN Pelaez [facility] 05:00:00 PM EDT - 07/05/2021 05:01:00 PM EDT [facility] Patient discharged. Outpatient Attender: YOUNG Alvarez FNPAtten dorinda: FELTON ALVAREZ OVEN WORKER CPSCAORT-CPSCNOBG 07/05/2021 08:45:00 AM EDT - 07/05/2021 08:46:00 AM EDT Z11. 8 [facility] Z11.8 Patient discharged. Unknown [address] [facility] [place] [address] 06/30/2021 12:00:00 AM EDT eCW1 ([facility]) Outpatient [address] [facility] [place] [address] 06/29/2021 12:00:00 AM EDT eCW1 ([facility]) Outpatient Attender: CAROLYN Pelaez [facility] 05:00:00 PM EDT - 06/08/2021 05:01:00 PM EDT [facility] Patient discharged. Outpatient Attender: CAROLYN Pelaez [facility] 05:30:00 PM EDT - 05/23/2021 05:31:00 PM EDT [facility] Patient discharged. Unknown [address] [facility] [place] [address] 05/19/2021 12:00:00 AM EDT eCW1 ([facility]) Outpatient [address] [facility] [place] [address] 04/28/2021 12:00:00 AM EDT eCW1 ([facility]) Outpatient Attender: CAROLYN Pelaez [facility] 01:26:00 PM EDT - 04/26/2021 01:27:00 PM EDT [facility] Patient discharged. Outpatient Attender: AMY GARCIA MD CPSCAORT-CPSPDPSY 11/2020 09:57:00 AM EDT - 04/07/2021 09:58:00 AM EDT [facility] Patient discharged. Outpatient Attender: UNKNOWN CPSCAORT-LABEJN 03/28/2021 02:12:00 PM E DT [facility] Outpatient Attender: Sasha LEE ED-LABGH 0 03/28/2021 10:27:00 AM EDT - 03/28/2021 10:28:00 AM EDT Z113 [id number] R102 R634 [facility] Z113 Z3200 R102 R634 Patient discharged. Outpatient [address] [facility] [place] [address] 03/28/2021 12:00:00 AM EDT eCW1 ([facility]) Outpatient Attender: Tiny Mistry NP CPSCAORT-CPSGNBEH 10/2020 11:07:00 AM EDT - 03/07/2021 11:08:[facility] [address] [facility] [place] [address] 02/08/2021 12:00:00 AM EDT eCW1 ([facility]) Outpatient Attender: LAURA MCLEAN DO CPSCAORT-CPSCAPHY 03:59:00 PM EDT - 01/30/2021 04:00:00 PM EDT [facility] Patient discharged. Outpatient Attender: SHEFALI LEE CPSCAORT-CPSLAUCC 01/06 12:20:00 PM EDT - 01/27/2021 12:21:00 PM EDT [facility] Patient discharged. Outpatient Attender: Tiny Mistry NP CPSCAORT-CPSGNBEH 12/06 09:10:00 AM EDT - 12/30/2020 09:11:00 AM EDT [facility] Patient discharged. Outpatient Attender: FELTON ALVAREZ NP CPSCAORT-CPSCNOBG 01:32:00 PM EDT - 12/26/2020 01:33:00 PM EDT [facility]. Outpatient Attender: FELTON ALVAREZ NP ED-IMAGH 12/09 01:06:00 PM EST - 12/09/2020 01:07:00 PM EST ABNORMAL UTERINE BLEED,PELVIC PAIN [facility] ABNORMAL UTERINE BLEED,PELVIC PAIN Patient discharged. Outpatient Attender: Tiny Mistry NP CPSCAORT-CPSGNBEH 11/08 08:07:00 AM EST - 12/02/2020 08:08:00 AM EST [facility] Patient discharged. Outpatient Attender: FELTON ALVAREZ NPAttender: AIR TANK ASSEMBLER- Sarah Alvarez [facility] CPSCAORT-CPSCNOBG 11/29/2020 02:34:00 PM EST - 11/29/2020 02:35:00 PM ES T N93.9; R10.2; Z11.3 [facility] N93.9; R10.2; Z11.3 Patient discharged. Emergency Attender: ABDULKADIR ENRIQUEZ MD ED-ED 0 11/08/2020 10:57:00 AM EST - 11/08/2020 11:38:00 AM EST NAUSEA ABD PAIN KIM [facility] NAUSEA ABD PAIN KIM Patient discharged. Outpatient Attender: Tiny Mistry NP CPSCAORT-CPSGNBEH 10/08 08:43:00 AM EST - 11/04/2020 08:44:00 AM EST [facility] Patient discharged. Outpatient CPSCAORT-LABEJN 08/31/2020 02:45:00 PM EST [facility] Outpatient Attender: Sasha LEE ED-LABPNP 1 10/31/2019 11:39:00 AM EST - 08/31/2020 11:40:00 AM EST R399 Z711 [facility] R399 Z711 Patient discharged. Outpatient Attender: Tiny Mistry NP CPSCAORT-CPSGNBEH 08/07 08:06:00 AM EST - 08/16/2020 08:07:00 AM EST [facility] Patient discharged. Outpatient Attender: STEPHANIE valladares 07/20/2020 02:45:00 PM EDT MEDENT ([facility]) Outpatient Attender: YOUNG Alvarez FNPAtten dorinda: FELTON ALVAREZ OVEN WORKER CPSCAORT-CPSCNOBG 06/15/2020 03:04:00 PM EDT - 06/15/2020 03:05:00 PM ED T N89.8,Z11.8,Z12.4 [facility] N89.8,Z11.8,Z12.4 Patient discharged. Immunizations Vaccine Date Status Description Data Source(s) COVID-19 VACCINE Pfizer 07/23/2021 12:00:00 AM EDT completed [facility] Vaccine Series Complete: YESThis Data wa s Submitted to [facility] Via [employer]. COVID-19 VACC, MRNA(PFIZER)/PF 07/23/2021 12:00:00 AM EDT completed [facility] COVID-19 VACCINE Pfizer 07/01/2021 12:00:00 AM EDT completed [facility] Vaccine Series Complete: NOThis Data was Submitted to [facility] [employer]. Medications Medication Brand Name Start Date Product Form Dose Route Admi nistrative Instructions Pharmacy Instructions Status Indications Reaction Description Data Source(s) pregabalin 150 MG Oral Capsule [Lyrica] Lyrica 150 MG Lyrica 150 MG 08/11/2021 12:00:00 AM EDT 1.0 {capsule} active eCW1 ([facility]) pregabalin 150 MG Oral Capsule [Lyrica] Lyrica 150 MG Lyrica 150 MG 08/11/2021 12:00:00 AM EDT 1.0 {capsule} active L yrica 150 MG eCW1 ([facility]) pregabalin 150 MG Oral Capsule [Lyrica] Lyrica 150 MG Lyrica 150 MG 08/11/2021 12:00:00 AM EDT 1.0 {capsule} active L yrica 150 MG eCW1 ([facility]) 30 mg 07/24/2021 12:00:00 AM EDT capsule 30 TAKE ONE CAPSULE BY MOUTH EVERY MORNING MAXIMUM DAILY DOSE = 1 TAKE ONE CAPSULE BY MOUTH EVERY MORNING MAXIMUM DAILY DOSE = 1 SOLD: 08/01/2021 [facility] 100 mg 07/07/2021 12:00:00 AM EDT tablet 90 TAKE ONE TABLET BY MOUTH EVERY MORNING TAKE ONE TABLET BY MOUTH EVERY MORNING SOLD: 07/13/2021 [facility] 25 mg 07/07/2021 12:00:00 AM EDT tablet 90 TAKE ONE TABLET BY MOUTH EVERY MORNING TAKE ONE TABLET BY MOUTH EVERY MORNING SOLD: 07/13/2021 [facility] 10 mg 07/05/2021 12:00:00 AM EDT tablet 10 TAKE ONE TABLET BY MOUTH EVERY DAY WITH FOOD FOR 10 DAYS TAKE ONE TABLET BY MOUTH EVERY DAY WITH FOOD FOR 10 DAYS SOLD: 07/13/2021 [facility] Isibloom 28 Day Pack 0.15-0.03 mg DESOGESTREL-ETHINYL ESTRAD IOL 07/05/2021 12:00:00 AM EDT tablet 28 TAKE ONE TABLET BY MOUTH EVERY DAY TAKE ONE TABLET BY MOUTH EVERY DAY SOLD: 07/13/2021 [facility] 60 mg 06/30/2021 12:00:00 AM EDT capsule,delayed release (/EC) 60 TAKE ONE CAPSULE BY MOUTH TWICE A DAY TAKE ONE CAPSULE BY MOUTH TWICE A DAY SOLD: 07/03/2021 [facility] 100 mg 06/30/2021 12:00:00 AM EDT capsule 60 TAKE ONE CAPSULE BY MOUTH TWICE A DAY MAXIMUM DAILY DOSE = 2 TAKE ONE CAPSULE BY MOUTH TWICE A DAY ALONA ESTRADA DAILY DOSE = 2 SOLD: 07/03/2021 [facility] 800 mg 06/30/2021 12:00:00 AM EDT tablet 90 TAKE ONE TABLET BY MOUTH THREE TIMES A DAY WITH FOOD OR MILK NEEDED TAKE ONE TABLET BY MOUTH THREE TIMES A DAY WITH FOOD OR MILK NEEDED SOLD: 07/03/2021 [facility] Ibuprofen 800 MG Oral Tablet Ibuprofen 800 MG 06/29/2021 12:00:00 AM E DT active Ibuprofen 800 MG eCW1 ([facility]) pregabalin 100 MG Oral Capsule [Lyrica] Lyrica 100 MG Lyrica 100 MG 06/29/2021 12:00:00 AM EDT 1.0 {capsule} active L yrica 100 MG eCW1 ([facility]) Ibuprofen 800 MG Oral Tablet Ibuprofen 800 MG 06/29/2021 12:00:00 AM E DT active Ibuprofen 800 MG eCW1 ([facility]) Ibuprofen 800 MG Oral Tablet Ibuprofen 800 MG 06/29/2021 12:00:00 AM E DT active Ibuprofen 800 MG eCW1 ([facility]) pregabalin 100 MG Oral Capsule [Lyrica] Lyrica 100 MG Lyrica 100 MG 06/29/2021 12:00:00 AM EDT 1.0 {capsule} active L yrica 100 MG eCW1 ([facility]) pregabalin 100 MG Oral Capsule [Lyrica] Lyrica 100 MG Lyrica 100 MG 06/29/2021 12:00:00 AM EDT 1.0 {capsule} active L yrica 100 MG eCW1 ([facility]) Ibuprofen 800 MG Oral Tablet Ibuprofen 800 MG 06/29/2021 12:00:00 AM E DT active Ibuprofen 800 MG eCW1 ([facility]) Ibuprofen 800 MG Oral Tablet Ibuprofen 800 MG 06/29/2021 12:00:00 AM E DT active eCW1 ([facility]) Ibuprofen 800 MG Oral Tablet Ibuprofen 800 MG 06/29/2021 12:00:00 AM E DT active Ibuprofen 800 MG eCW1 ([facility]) 30 mg 06/20/2021 12:00:00 AM EDT capsule 30 TAKE ONE CAPSULE BY MOUTH EVERY MORNING MAXIMUM DAILY DOSE = 1 TAKE ONE CAPSULE BY MOUTH EVERY MORNING MAXIMUM DAILY DOSE = 1 SOLD: 06/26/2021 [facility] valacyclovir 1000 MG Oral Tablet VALACYCLOVIR HCL 05/30/2021 12: 00:00 AM EDT tablet 10 TAKE ONE TABLET BY MOUTH EVERY D AY FOR 10 DAYS TAKE ONE TABLET BY MOUTH EVERY DAY FOR 10 DAYS SOLD: 06/06/2021 [facility] 30 mg 05/10/2021 12:00:00 AM EDT capsule 30 TAKE ONE CAPSULE BY MOUTH EVERY MORNING MAXIMUM DAILY DOSE = 1 CAPSULE TAKE ONE CAPSULE BY MOUTH EVERY MORNING MAXIMUM DAILY DOSE = 1 CAPSULE SOLD: 05/23/2021 [facility] [id number] 05/03/2021 12:00:00 AM EDT Suspension 240 RINSE 5ML FOR 35-40 SECONDS TO AFFECTED AREA(S) THEN SPIT EVERY 4 HOURS NEEDED FOR PAIN RINSE 5ML FOR 35-40 SECONDS TO AFFECTED AREA(S) THEN SPIT EVERY 4 HOURS NEEDED FOR PAIN SOLD: 05/03/2021 [facility] 5-325 mg 05/03/2021 12:00:00 AM EDT tablet 15 TAKE 1 TABLET BY MOUTH EVERY 4-6 HOURS NEEDED FOR PAIN MAXIMUM DAILY DOSE = 5 TAKE 1 TABLET BY MOUTH EVERY 4-6 HOURS NEEDED FOR PAIN MAXIMUM DAILY DOSE = 5 SOLD: 05/03/2021 [facility] 100 mg 05/01/2021 12:00:00 AM EDT capsule 60 TAKE ONE CAPSULE BY MOUTH TWICE A DAY MAXIMUM DAILY DOSE = 2 TAKE ONE CAPSULE BY MOUTH TWICE A DAY MA XIMUM DAILY DOSE = 2 SOLD: 05/02/2021 [facility] ugroman 500 mg 04/25/2021 12:00:00 AM EDT capsule 21 TAKE ONE CAPSULE BY MOUTH EVERY 8 HOURS UNTIL GONE TAKE ONE CAPSULE BY MOUTH EVERY 8 HOURS UNTIL GONE YAA [facility] Acetaminophen 325 MG / Hydrocodone Bitartrate 5 MG Ora l Tablet 5-325 mg HYDROCODONE/ACETAMINOPHEN 04/25/2021 12:00:00 AM EDT tablet 16 TAKE 1 TABLET BY MOUTH EVERY 4 TO 6 HOURS NEEDED FOR PAIN MAXIMUM DAILY DOSE = 4 TABLETS TAKE 1 TABLET BY MOUTH EVERY 4 TO 6 HOURS NEEDED FOR PAIN MAXIMUM DAILY DOSE = 4 TABLETS SOLD: 04/25/2021 [facility] 4 mg 04/25/2021 12:00:00 AM EDT tablets,dose pack 21 TAKE BY MOUTH DIRECTED TAKE BY MOUTH DIRECTED SOLD: 04/25/2021 [facility] 800 mg 04/25/2021 12:00:00 AM EDT tablet 15 TAKE ONE TABLET BY MOUTH THREE TIMES A DAY NEEDED TAKE ONE TABLET BY MOUTH THREE TIMES A DAY NEEDED S OLD: 04/25/2021 [facility] 0.12 % 04/25/2021 12:00:00 AM EDT mouthwash 473 RINSE AND SPIT 10MLS BY MOUTH 4 TIMES A DAY STARTING 04/26/2021 RINSE AND SPIT 10MLS BY MOUTH 4 TIMES A DAY STARTING 04/26/2021 SOLD: 04/25/2021 [facility] 100 mg 04/07/2021 12:00:00 AM EDT tablet 90 TAKE ONE TABLET BY MOUTH EVERY MORNING TAKE ONE TABLET BY MOUTH EVERY MORNING SOLD: 04/11/2021 [facility] 30 mg 04/07/2021 12:00:00 AM EDT capsule 30 TAKE ONE CAPSULE BY MOUTH EVERY MORNING MAXIMUM DAILY DOSE = 1 TAKE ONE CAPSULE BY MOUTH EVERY MORNING MAXIMUM DAILY DOSE = 1 SOLD: 04/11/2021 [facility] Trazodone Hydrochloride 100 MG Oral Tablet TRAZODONE HCL 04/07/2021 12:00:00 AM EDT tablet 90 TAKE ONE TABLET BY MOUTH AT BEDTIME NEEDED FOR INSOMNIA TAKE ONE TABLET BY MOUTH AT BEDTIME NEEDED FOR INSOMNIA SOLD: 04/11/2021 [facility] 600 mg 04/07/2021 12:00:00 AM EDT capsule 60 TAKE ONE CAPSULE BY MOUTH TWICE A DAY TAKE ONE CAPSULE BY MOUTH TWICE A DAY SOLD: 04/11/2021 [facility] 25 mg 04/07/2021 12:00:00 AM EDT tablet 90 TAKE ONE TABLET BY MOUTH EVERY MORNING TAKE ONE TABLET BY MOUTH EVERY MORNING SOLD: 04/11/2021 [facility] 1 mg 04/07/2021 12:00:00 AM EDT capsule 270 TAKE THREE CAPSULES BY MOUTH AT BEDTIME TAKE THREE CAPSULES BY MOUTH AT BEDTIME SOLD: 04/11/2021 [facility] pregabalin 75 MG Oral Capsule [Lyrica] Lyrica 75 MG Lyrica 7 5 MG 03/28/2021 12:00:00 AM EDT 1.0 {capsule} active L yrica 75 MG eCW1 ([facility]) 75 mg 03/28/2021 12:00:00 AM EDT capsule 60 TAKE ONE CAPSULE BY MOUTH TWICE A DAY MAXIMUM DAILY DOSE = 2 CAPSULES TAKE ONE CAPSULE BY MOUTH TWICE A DAY MAXIMUM DAILY DOSE = 2 CAPSULES SOLD: 03/28/2021 [facility] 30 mg 03/07/2021 12:00:00 AM EDT capsule 30 TAKE ONE CAPSULE BY MOUTH EVERY MORNING MAXIMUM DAILY DOSE = 1 TAKE ONE CAPSULE BY MOUTH EVERY MORNING MAXIMUM DAILY DOSE = 1 SOLD: 03/08/2021 [facility] 300 mg 02/09/2021 12:00:00 AM EDT capsule 180 TAKE ONE CAPSULE BY MOUTH EVERY 12 HOURS TAKE ONE CAPSULE BY MOUTH EVERY 12 HOURS SOLD: 02/12/2021 [facility] 60 mg 01/31/2021 12:00:00 AM EDT capsule,delayed release (DR/EC) 30 TAKE ONE CAPSULE BY MOUTH EVERY DAY NEEDED TAKE ONE CAPSULE BY MOUTH EVERY DAY NEEDED SOLD: 02/12/2021 [facility] 25 mg 01/27/2021 12:00:00 AM EDT tablet 6 TAKE ONE TABLET BY MOUTH TWICE A DAY NEEDED AND AT LEAST 2 HOURS APART TAKE ONE TABLET BY MOUTH TWICE A DAY NEEDED AND AT LEAST 2 HOURS APART SOLD: 01/27/2021 [facility] 4 mg 01/27/2021 12:00:00 AM EDT tablets,dose pack 21 TAKE DIRECTED TAKE DIRECTED SOLD: 01/27/2021 [facility] 25 mg 01/26/2021 12:00:00 AM EDT tablet 90 TAKE ONE TABLET BY MOUTH ONCE A DAY WITH 100 MG TO EQUAL 125 MG TAKE ONE TABLET BY MOUTH ONCE A DAY WITH 100 MG TO EQUAL 125 MG SOLD: 01/26/2021 [facility] 100 mg 01/25/2021 12:00:00 AM EDT tablet 90 TAKE ONE TABLET BY MOUTH DAILY TAKE ONE TABLET BY MOUTH DAILY SOLD: 01/26/2021 [facility] 500 mg 01/11/2021 12:00:00 AM EDT tablet 28 TAKE ONE TABLET BY MOUTH EVERY 6 HOURS UNTIL GONE TAKE ONE TABLET BY MOUTH EVERY 6 HOURS UNTIL GONE SOLD : 01/12/2021 [facility] 300 mg 01/03/2021 12:00:00 AM EDT capsule 60 TAKE ONE CAPSULE BY MOUTH EVERY 12 HOURS TAKE ONE CAPSULE BY MOUTH EVERY 12 HOURS SOLD: 01/03/2021 [facility] 30 mg 12/31/2020 12:00:00 AM EDT capsule 30 TAKE ONE CAPSULE BY MOUTH EVERY DAY IN THE MORNING MAXIMUM DAILY DOSE = 1 CAPSULE TAKE ONE CAPSULE BY MOUTH EVERY DAY IN THE MORNING MAXIMUM DAILY DOSE = 1 CAPSULE SOLD: 01/02/2021 [facility] 100 mg 12/26/2020 12:00:00 AM EDT capsule 14 TAKE ONE CAPSULE BY MOUTH TWICE A DAY FOR 7 DAYS TAKE ONE CAPSULE BY MOUTH TWICE A DAY FOR 7 DAYS SOLD: 12/30/2020 [facility] 20 mg 12/07/2020 12:00:00 AM EST capsule 30 TAKE ONE CAPSULE BY MOUTH EVERY MORNING MAXIMUM DAILY DOSE = 1 TAKE ONE CAPSULE BY MOUTH EVERY MORNING MAXIMUM DAILY DOSE = 1 SOLD: 12/20/2020 [facility] 25 mg 12/02/2020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 mIU/mL 2-3 Weeks: 100-5,000 mIU/mL 3-4 Weeks: 500-10,000 mIU/mL 4-5 Weeks: 1,000-50,000 mIU/mL 5-6 Weeks: 10,000-100,000 mIU/mL 6-8 Weeks: 15,000-200,000 mIU/mL 2-3 Months: 10,000-100,000 mIU/mL ID Date Data Source [id number] 03/28/2021 10:59:00 AM EDT [facility] Name Value Range Interpretation Code Description Data Suellen rce(s) Supporting Document(s) White Blood Count 3.5-10.5 Normal (applies to non-numeri c results) [facility] Red Blood Count 3.90-5.00 Below low normal [facility] Hemoglobin 12.0-15.5 Normal (applies to non-numeric resul ts) [facility] Hematocrit 34.9-44.5 Normal (applies to non-numeric resul ts) [facility] Mean Corpuscular Volume 81.2-95.1 Normal (applies to non- numeric results) [facility] Mean Corpuscular Hgb 25.6-32.2 Normal (applies to non-num elis results) [facility] Mean Corpuscular Hgb Conc 32.0-36.0 Normal (applies to no n-numeric results) [facility] Red Cell Distribution Width 11.9-15.5 Normal (appli es to non-numeric results) [facility] Platelet Count 322 x10 3/uL 150-450 Normal (applies to non-numeric results) [facility] Mean Platelet Volume 9.4-12.4 Below low normal [facility] Neutrophils% (Auto) 31.0-71.0 Normal (applies to non-nume nakul results) [facility] Lymphocytes% (Auto) 20.0-55.0 Normal (applies to non-nume nakul results) [facility] Monocytes% (Auto) 4.0-12.0 Normal (applies to non-numeri c results) [facility] Eosinophils% (Auto) 1.0-8.0 Normal (applies to non-nume nakul results) [facility] Basophils% (Auto) 0.0-2.0 Normal (applies to non-numeri c results) [facility] Immature Granulocytes% (Auto) 0.0-2.0 Normal (deanna lies to non-numeric results) [facility] Neutrophils# (Auto) 1.50-6.20 Normal (applies to non-nume nakul results) [facility] Lymphocytes# (Auto) 1.20-4.00 Normal (applies to non-nume nakul results) [facility] Monocytes# (Auto) 0.00-0.90 Normal (applies to non-numeri c results) [facility] Eosinophils# (Auto) 0.00-0.50 Normal (applies to non-nume nakul results) [facility] Basophils# (Auto) 0.00-0.20 Normal (applies to non-numeri c results) [facility] Immature Granulocytes# (Auto) 0.00-7.00 No rmal (applies to non-numeric results) [facility] ID Date Data Source [id number] 12/28/2020 09:29:[address] [facility] Name Value Range Interpretation Code Description Data Suellen rce(s) Supporting Document(s) Urine Culture Normal (applies to non-numeric re sults) [facility] ID Date Data Source [id number] 12/11/2020 12:27:00 PM [facility] Imaging Services Department Imaging Report [address] [place] [address] %(RAD)RES..mtdd.print.filter("line") Name: HUYEN CONNORS : 2000 Age/Sex: 20F Ordering Provider: YOUNG Erickson Med Rec #: [id number] Reg Status: DEP REF Room #: Date of Service: 12/09/20 Report Number: [id number] cc:JESUS Gandara; YOUNG Erickson Send Report To: [id number] US/US Transvaginal Reason for exam: PELVIC PAIN, ABNORMAL UTERINE BLEEDING Comparison is made to 12/12/2018 FINDINGS: The uterus measures 7.3 x 2.9 x 4 cm. The uterus has a normal appearing echotexture with out focal lesion. The endometrial thickness is within normal limits measuring 0.7 cm. Ther are some anechoic nabothian cysts at the cervix with one of the largest measuring 1 cm. No free fluid is seen. The leftovary measures 3.2 x 2.3 3.6 cm. The right ovary measures 3.5 x 2.4 x 3.4 cm. There are numerous small subcentimeter follicles at bilateral ovaries most of which are located along the periphery of the ovaries which can been seen with polycystic ovarian disease. No suspicious lesion is seen at the ovaries. Thereis no adnexal mass. Normal arterial blood flow is demonstrated at bilateral ovaries without torsion. IMPRESSION: Numerous small follicles at bilateral ovaries possibly from polycystic ovarian disease. Correlate clinically. Uterus unremarkable. Otherwise, no acute disease. REPORT SIGNATURE ON FILE Reported By: Otoniel Anglin MD <Electronically signed by Otoniel Anglin MD> 12/12/20 1203 Dictation Date/Time: 12/09/20 1655 Transcribed Date/Time: 12/11/20 1227 Capacity Analyst: FAY Name Value Range Interpretation Code Description Data Suellen rce(s) Supporting Document(s) ID Date Data Source [id number] 11/30/2020 09:11:00 PM [facility] Name Value Range Interpretation Code Description Data Suellen rce(s) Supporting Document(s) Chlamydia,Urine Negative Normal (applies to non-numeric results) [facility] GC Urine Negative Normal (applies to non-numeric resul ts) [facility] Methodology: Second generation nucleic a chandrika amplification. ID Date Data Source [id number] 11/30/2020 02:46:00 AM [facility] Name Value Range Interpretation Code Description Data Suellen rce(s) Supporting Document(s) Free T4 (Free Thyroxine) 0.76-1.46 Normal (applies to non -numeric results) [facility] ID Date Data Source [id number] 11/30/2020 02:46:00 AM EST [facility] Name Value Range Interpretation Code Description Data Suellen rce(s) Supporting Document(s) Sodium 140 mmol/L 137-145 Normal (applies to non-numeric resul ts) [facility] Potassium 3.5-5.1 Normal (applies to non-numeric resul ts) [facility] Chloride 105 mmol/L 98-112 Normal (applies to non-numeric resul ts) [facility] Carbon Dioxide CO2 22.0-33.0 Normal (applies to non-numer ic results) [facility] Anion Gap 4.0-11.0 Normal (applies to non-numeric resul ts) [facility] BUN 7 mg/dL 7-17 Normal (applies to non-numeric resul ts) [facility] Creatinine 0.70-1.20 Normal (applies to non-numeric resul ts) [facility] GFR 79 mL/min >60 Normal (applies to non-numeric resul ts) [facility] Result based on MDRD formula. Glucose Level 125 mg/dL 74-99 Above high normal [facility] The reference range is only applicable w hen fasting. Calcium-Uncorrected 8.4-10.2 Normal (applies to non-nume nakul results) [facility] Corrected Calcium 8.4-10.2 Normal (applies to non-numeri c results) [facility] Bilirubin,Total 0.2-1.3 Normal (applies to non-numeric results) [facility] SGOT(AST) 18 U/L 14-36 Normal (applies to non-numeric resul ts) [facility] SGPT(ALT) 34 U/L 9-52 Normal (applies to non-numeric resul ts) [facility] Alkaline Phosphatase 98 U/L 38-126 Normal (applies to non-num elis results) [facility] can increase Alkaline Phosp le vels up to 2 times the normal adult value. Normal values for children and adolescents are 2 to 3 times the normal adult value. Total Protein 6.3-8.2 Normal (applies to non-numeric re sults) [facility] Albumin 3.5-5.0 Normal (applies to non-numeric resul ts) [facility] ID Date Data Source [id number] 11/30/2020 02:46:00 AM [facility] Value Range Interpretation Code Description Data Suellen rce(s) Supporting Document(s) Free T3 2.18-3.98 Normal (applies to non-numeric resul ts) [facility] ID Date Data Source [id number] 11/30/2020 02:46:00 AM [facility] Value Range Interpretation Code Description Data Suellen rce(s) Supporting Document(s) Beta HCG,Quantitative [phone] Below low normal [facility] ID Date Data Source [id number] 11/30/2020 02:46:00 AM [facility] Value Range Interpretation Code Description Data Suellen rce(s) Supporting Document(s) Thyroid Stimulate Hormone TSH 0.358-3.740 No rmal (applies to non-numeric results) [facility] ID Date Data Source [id number] 11/29/2020 09:28:00 PM [facility] Value Range Interpretation Code Description Data Suellen rce(s) Supporting Document(s) Hep C Ab-T Test Nonreactive Normal (applies to non-numeric results) [facility] ID Date Data Source [id number] 11/29/2020 09:28:00 PM [facility] Value Range Interpretation Code Description Data Suellen rce(s) Supporting Document(s) Hep Bs Ag Result T-Test Nonreactive Normal (applies to non -numeric results) [facility] ID Date Data Source [id number] 11/29/2020 09:28:00 PM [facility] Value Range Interpretation Code Description Data Suellen rce(s) Supporting Document(s) Syphilis Serology Nonreactive Normal (applies to non-numer ic results) [facility] ID Date Data Source [id number] 11/29/2020 09:28:00 PM [facility] Value Range Interpretation Code Description Data Suellen rce(s) Supporting Document(s) HIV 1/2 Ab p24 Ag Screen Nonreactive Normal (applies to non-numeric results) [facility] ID Date Data Source [id number] 11/29/2020 07:30:00 PM EST [facility] Name Value Range Interpretation Code Description Data Suellen rce(s) Supporting Document(s) White Blood Count 4.8-10.8 Normal (applies to non-numeri c results) [facility] Red Blood Count 3.68-5.22 Normal (applies to non-numeric results) [facility] Hemoglobin 11.2-15.7 Normal (applies to non-numeric resul ts) [facility] Hematocrit 34.1-44.9 Normal (applies to non-numeric resul ts) [facility] Mean Corpuscular Volume 81-99 Normal (applies to non- numeric results) [facility] Mean Corpuscular Hemoglobin 27.0-33.0 Normal (appli es to non-numeric results) [facility] Mean Corpuscular HGB Conc 32.0-36.0 Normal (applies to no n-numeric results) [facility] Red Cell Distribution Width 11.5-14.5 Normal (appli es to non-numeric results) [facility] Platelet Count 341 X10 3/uL 130-450 Normal (applies to non-numeric results) [facility] Mean Platelet Volume 9.5-12.7 Normal (applies to non-num elis results) [facility] Imm Grans% (AUTO) 0 % 0-2 Normal (applies to non-numeri c results) [facility] Neutrophils % (AUTO) 51 % 40-75 Normal (applies to non-num elis results) [facility] Lymphocytes % (AUTO) 41 % 21-46 Normal (applies to non-num elis results) [facility] Monocytes % (AUTO) 6 % 5-12 Normal (applies to non-numer ic results) [facility] Eosinophils % (AUTO) 2 % 1-5 Normal (applies to non-num elis results) [facility] Basophils % (AUTO) 1 % 0-1 Normal (applies to non-numer ic results) [facility] Imm Grans# (AUTO) 0.0-0.5 Normal (applies to non-numeri c results) [facility] Neutrophils # (AUTO) 1.5-8.1 Normal (applies to non-num elis results) [facility] Lymphocytes # (AUTO) 1.0-3.1 Normal (applies to non-num elis results) [facility] Monocytes # (AUTO) 0.2-1.3 Normal (applies to non-numer ic results) [facility] Eosinophils# (AUTO) 0.0-0.5 Normal (applies to non-nume nakul results) [facility] Basophils # (AUTO) 0.0-0.1 Normal (applies to non-numer ic results) [facility] ID Date Data Source [id number] 11/09/2020 07:37:00 AM EST [facility] Name Value Range Interpretation Code Description Data Suellen rce(s) Supporting Document(s) SARS-CoV-2 RNA INHOUSE Negative Normal (applies to non-n umeric results) [facility] THIS IS A [facility] REPORTABLE COMMUNICABLE DISEASE. Testing was performed using the [employer] COVID-19 MDx Assay. This test has been authorized by FDA under an (Emergency Use Authorization) EUA for use by authorized laboratories for individuals who are suspected of COVID-19 by their healthcare provider. This test is only authorized for the duration of the declaration that circumstances exist justifying the authorization of emergency use of in vitro diagnostic tests for detection and/or diagnosis of SARS-CoV-2. Methodology: Endpoint RT-PCR. Fact sheets for this EUA assay can be found at the following links: Providers: https://www.fda.gov/media/989891/download Patients : https://www.fda.gov/media/135353/download THIS IS A [facility] REPORTABLE COMMUNICABLE DISEASE Negative results do not preclude SARS-CoV-2 infection and should not be used as the sole basis for patient management decisions. Negative results must be combined with clinical observations,patient history, and epidemiological information. ID Date Data Source [id number] 11/08/2020 11:08:00 AM EST [facility] Name Value Range Interpretation Code Description Data Suellen rce(s) Supporting Document(s) Respiratory specimen severe acute respir atory syndrome coronavirus 2 (SARS-CoV-2) RNA Negative (qualifier value) [facility] This lab was ordered by [facility] angelia and reported by . ID Date Data Source [id number] 11/08/2020 11:33:[address] [facility] Collected By: Nurse Initials: akl Time Collected: 111 Collected By: Nurse Initials: akl Time Collected: 111 Name Value Range Interpretation Code Description Data Suellen rce(s) Supporting Document(s) Color,Urine Colorl-Dk Y Normal (applies to non-numeric res ults) [facility] Clarity,Urine Clear Normal (applies to non-numeric re sults) [facility] Specific [place],Urine 1.005-1.030 Normal (applies to non- numeric results) [facility] pH,Urine 5.0-8.0 Normal (applies to non-numeric resul ts) [facility] Protein,Urine Negative Normal (applies to non-numeric re sults) [facility] Glucose,Urine Negative Normal (applies to non-numeric re sults) [facility] Ketones,Urine Negative Normal (applies to non-numeric re sults) [facility] Blood,Urine Negative Normal (applies to non-numeric resu lts) [facility] Bilirubin,Urine Negative Normal (applies to non-numeric results) [facility] Urobilinogen,Urine 0.2-1.0 Normal (applies to non-numer ic results) [facility] Leukocyte Esterase,Urine Negative Normal (applies to non -numeric results) [facility] Nitrite,Urine Negative Normal (applies to non-numeric re sults) [facility] ID Date Data Source [id number] 11/08/2020 11:33:[address] [facility] Collected By: Nurse Initials: akl Time Collected: [phone] Collected By: Nurse Initials: akl Time Collected: 111 Name Value Range Interpretation Code Description Data Suellen rce(s) Supporting Document(s) HCG,Ur Negative Normal (applies to non-numeric results) [facility] ID Date Data Source [id number] 09/20/2020 01:12:00 AM [facility] Procedure Performed By: [facility] [address] [place] [address] Director: Gael Conner MD Name Value Range Interpretation Code Description Data Suellen rce(s) Supporting Document(s) Urine Culture [facility] ID Date Data Source [id number] 09/20/2020 01:12:00 AM [facility] Name Value Range Interpretation Code Description Data Suellen rce(s) Supporting Document(s) TVRNA T. Vag (Females) Source Normal (applies t o non-numeric results) [facility] TVRNA T. Vag (Females) result Negative No rmal (applies to non-numeric results) [facility] Test Performed by: [place] [address] Bobbin Marker: Vicente Umaña M.D. Ph.D.; CLIA# [id number] ID Date Data Source [id number] 09/20/2020 01:12:00 AM [facility] Name Value Range Interpretation Code Description Data Suellen rce(s) Supporting Document(s) Chlamydia,Urine Negative Normal (applies to non-numeric results) [facility] Test Performed By: [facility] [address] [place] [address] Director: Sruthi Conner MD . GC Urine Negative Normal (applies to non-numeric resul ts) [facility] Test Performed By: [facility] [address] [place] [address] Director: Sruthi Conner MD . Methodology: Second generation nucleic acid amplification. ID Date Data Source [id number] 09/04/2020 03:08:[address] [facility] Name Value Range Interpretation Code Description Data Suellen rce(s) Supporting Document(s) TVRNA T. Vag (Females) Source Normal (applies t o non-numeric results) [facility] TVRNA T. Vag (Females) result Negative No rmal (applies to non-numeric results) [facility] Test Performed by: [place] [address] Bobbin Marker: Vicente Umaña M.D. Ph.D.; CLIA# [id number] ID Date Data Source [id number] 09/02/2020 04:17:[address] [facility] Name Value Range Interpretation Code Description Data Suellen rce(s) Supporting Document(s) Chlamydia,Urine result Negative Normal (applies to non-n umeric results) [facility] Test Performed By: [facility] [address] [place] [address] Director: Sruthi Conner MD . GC Urine result Negative Normal (applies to non-numeric results) [facility] Test Performed By: [facility] [address] [place] [address] Director: Sruthi Conner MD . Methodology: Second generation nucleic acid amplification. ID Date Data Source [id number] 09/02/2020 10:19:00 AM EST [facility] Procedure Performed By: [facility] [address] [place] [address] Director: Gael Conner MD Name Value Range Interpretation Code Description Data [facility] rce(s) Supporting Document(s) Urine Culture [facility] ID Date Data Source [id number] 08/31/2020 01:01:[address] [facility] Name Value Range Interpretation Code Description Data [facility] rce(s) Supporting Document(s) Color,Urine Colorl-Dk Y Normal (applies to non-numeric res ults) [facility] Clarity,Urine Clear Normal (applies to non-numeric re sults) [facility] Specific [place],Urine 1.005-1.030 Normal (applies to non- numeric results) [facility] pH,Urine 5.0-8.0 Normal (applies to non-numeric resul ts) [facility] Protein,Urine Negative Normal (applies to non-numeric re sults) [facility] Glucose,Urine Negative Normal (applies to non-numeric re sults) [facility] Ketones,Urine Negative Normal (applies to non-numeric re sults) [facility] Blood,Urine Negative Normal (applies to non-numeric resu lts) [facility] Bilirubin,Urine Negative Normal (applies to non-numeric results) [facility] Urobilinogen,Urine 0.2-1.0 Normal (applies to non-numer ic results) [facility] Leukocyte Esterase,Urine Negative [facility] Nitrite,Urine Negative Normal (applies to non-numeric re sults) [facility] RBC,Urine None Seen Normal (applies to non-numeric resul ts) [facility] WBC,Urine None Seen [facility] Casts,Urine None Seen Normal (applies to non-numeric resu lts) [facility] Squamous Cells,Urine None Seen [facility] Bacteria,Urine None Seen [facility] ital ID Date Data Source [id number] 08/31/2020 01:01:00 PM EST [facility] Name Value Range Interpretation Code Description Data [place] rce(s) Supporting Document(s) HCG,Ur Negative Normal (applies to non-numeric results) [facility] Procedure Social History Code Duration Value Status Description Data Source(s ) Smoking 08/11/2021 12:00:00 AM EDT Never Smoker completed Never S moker eCW1 ([facility]) Smoking 08/11/2021 12:00:00 AM EDT Never Smoker completed Never S moker eCW1 ([facility]) Smoking 08/11/2021 12:00:00 AM EDT Never Smoker completed Never S moker eCW1 ([facility]) Smoking 06/29/2021 12:00:00 AM EDT Never Smoker completed Never S moker eCW1 ([facility]) Smoking 06/29/2021 12:00:00 AM EDT Never Smoker completed Never S moker eCW1 ([facility]) Smoking 06/29/2021 12:00:00 AM EDT Never Smoker completed Never S moker eCW1 ([facility]) Smoking 04/28/2021 12:00:00 AM EDT Never Smoker completed Never S moker eCW1 ([facility]) Smoking 04/28/2021 12:00:00 AM EDT Never Smoker completed Never S moker eCW1 ([facility]) Smoking 03/28/2021 12:00:00 AM EDT Never Smoker completed Never S moker eCW1 ([facility]) Vital Signs ID Date Data Source UNK Name Value Range Interpretation Code Description Data Source(s) Body weight 180.6 [lb_av] 180.6 [lb_av] eCW1 ([facility]) Body weight 81.92 kg 81.92 kg eCW1 ([facility]) Body height 64 [in_i] 64 [in_i] eCW1 ([facility]) Body mass index (BMI) [Ratio] 30.28 kg/m2 30.28 kg/m2 eCW1 ([facility]) Heart rate 106 /min 106 /min eCW1 ([facility]) Respiratory rate 18 /min 18 /min eCW1 ([facility]) Body temperature 98.4 [degF] 98.4 [degF] eCW1 ( [facility]) Systolic blood pressure 143 mm[Hg] 143 mm[Hg] e CW1 ([facility]) Diastolic blood pressure 84 mm[Hg] 84 mm[Hg] eCW1 ([facility]) Body weight 176.4 [lb_av] 176.4 [lb_av] eCW1 ([facility]) Body weight 80.01 kg 80.01 kg eCW1 ([facility]) Body height 64 [in_i] 64 [in_i] eCW1 ([facility]) Body mass index (BMI) [Ratio] 30.28 kg/m2 30.28 kg/m2 eCW1 ([facility]) Heart rate 96 /min 96 /min eCW1 ([facility]) Respiratory rate 18 /min 18 /min eCW1 ([facility]) Body temperature 99.0 [degF] 99.0 [degF] eCW1 ( [facility]) Systolic blood pressure 126 mm[Hg] 126 mm[Hg] e CW1 ([facility]) Diastolic blood pressure 68 mm[Hg] 68 mm[Hg] eCW1 ([facility]) Body weight 179.2 [lb_av] 179.2 [lb_av] eCW1 ([facility]) Body height 64 [in_i] 64 [in_i] eCW1 ([facility]) Body mass index (BMI) [Ratio] 30.76 kg/m2 30.76 kg/m2 eCW1 ([facility]) Heart rate 83 /min 83 /min eCW1 ([facility]) Respiratory rate 18 /min 18 /min eCW1 ([facility]) Body temperature 97.6 [degF] 97.6 [degF] eCW1 ( [facility]) Systolic blood pressure 129 mm[Hg] 129 mm[Hg] e CW1 ([facility]) Diastolic blood pressure 67 mm[Hg] 67 mm[Hg] eCW1 ([facility]) Heart rate 95 /min 95 /min eCW1 ([facility]) Body height 64 [in_i] 64 [in_i] eCW1 ([facility]) Body weight 177.0 [lb_av] 177.0 [lb_av] eCW1 ([facility]) Body temperature 97.8 [degF] 97.8 [degF] eCW1 ( [facility]) Respiratory rate 18 /min 18 /min eCW1 ([facility]) Body mass index (BMI) [Ratio] 30.38 kg/m2 30.38 kg/m2 eCW1 ([facility]) Diastolic blood pressure 65 mm[Hg] 65 mm[Hg] eCW1 ([facility]) Systolic blood pressure 125 mm[Hg] 125 mm[Hg] e CW1 ([facility]) Heart rate 95 /min 95 /min MEDENT ([facility] Systolic blood pressure 116 mm[Hg] 116 mm[Hg] M EDENT ([facility]) Diastolic blood pressure 79 mm[Hg] 79 mm[Hg] MEDENT ([facility], [facility]) Respiratory rate 18 /min 18 /min [facility]ENT ( [facility] Oxygen saturation in Arterial blood by Pulse oximetry 98 % 98 % MEDENT ([facility]) Body temperature 98.3 [degF] 98.3 [degF] MEDENT ([facility]) Body weight 185.00 [lb_av] 185.00 [lb_av] JASMEETEN T ([facility]) Body height 64 [in_i] 64 [in_i] MEDJAY ([facility]) 5'4" Body mass index (BMI) [Ratio] 31.8 kg/m2 31.8 k g/m2 [facility] ID Date Data Source [id number] 11/23/2020 07:28:00 AM EST [facility] Name Value Range Interpretation Code Description Data Source(s) Weight Measurement Method 8 8 [facility] Weight 2960 2960 [facility] pital Temperature Source 7 7 [facility] Temperature 98.7 98.7 [facility] spital Respiratory Effort 1 1 [facility] Respiratory Rate 16 16 [facility] Pulse Assessment Method 4 4 G [facility] Pulse Rate 84 84 [facility] 64 64 [facility] 141/82 141/82 [facility] Weight Measurement Method 8 8 [facility] Weight 2960 2960 [facility] pital Temperature Source 7 7 [facility] Temperature 98.7 98.7 [facility] spital Respiratory Effort 1 1 [facility] Respiratory Rate 16 16 [facility] Pulse Assessment Method 4 4 G [facility] Pulse Rate 84 84 [facility] Height 64 64 [facility] Pressure 141/82 141/82 [facility] Weight Measurement Method 8 8 [facility] Weight 2960 2960 [facility] pital Temperature Source 7 7 [facility] Temperature 98.7 98.7 [facility] spital Respiratory Effort 1 1 [facility] Respiratory Rate 16 16 [facility] Pulse Assessment Method 4 4 G [facility] Pulse Rate 84 84 [facility] Height 64 64 [facility] Blood Pressure 141/82 141/82 [facility] Patient Treatment Plan of Care Planned Activity Planned Date Details Description Data Source (s) pregabalin 150 MG Oral Capsule [Lyrica] 08/11/2021 12:00:00 AM EDT eCW1 ([facility]) pregabalin 150 MG Oral Capsule [Lyrica] 08/11/2021 12:00:00 AM EDT eCW1 ([facility]) pregabalin 150 MG Oral Capsule [Lyrica] 08/11/2021 12:00:00 AM EDT eCW1 ([facility]) Ibuprofen 800 MG Oral Tablet 06/29/2021 12:00:00 AM EDT eCW1 ([facility]) Ibuprofen 800 MG Oral Tablet 06/29/2021 12:00:00 AM EDT eCW1 ([facility]) pregabalin 100 MG Oral Capsule [Lyrica] 06/29/2021 12:00:00 AM EDT eCW1 ([facility]) Ibuprofen 800 MG Oral Tablet 06/29/2021 12:00:00 AM EDT eCW1 ([facility]) pregabalin 100 MG Oral Capsule [Lyrica] 06/29/2021 12:00:00 AM EDT eCW1 ([facility]) Ibuprofen 800 MG Oral Tablet 06/29/2021 12:00:00 AM EDT eCW1 ([facility]) pregabalin 100 MG Oral Capsule [Lyrica] 06/29/2021 12:00:00 AM EDT eCW1 ([facility]) Ibuprofen 800 MG Oral Tablet 06/29/2021 12:00:00 AM EDT eCW1 ([facility]) Ibuprofen 800 MG Oral Tablet 06/29/2021 12:00:00 AM EDT eCW1 ([facility]) pregabalin 75 MG Oral Capsule [Lyrica] 03/28/2021 12:00:00 AM EDT eCW1 ([facility])
[2021-09-09] MEDS ORDERED: LAMO100T3 PO (13:03)
[2021-09-09] MEDS ORDERED: VYVA30CA4 PO (13:03)
[2021-09-09] MEDS ORDERED: IBUP80TA PO (13:03)
[2021-09-09] MEDS ORDERED: PREG150C PO (13:03)
[2021-09-09] MEDS ORDERED: ONDANSETRON 4 MG TAB PO ONE (13:55)
[2021-09-09] MEDS ORDERED: PREGABALIN 75 MG CAP(LYRICA) PO ONE (13:55)
[2021-09-09] MEDS ORDERED: ONDANSETRON 4 MG ORAL DISINTEGRATING TAB PO ONE (14:00)
--- OUTSIDE RECORDS SUMMARY | 2021-09-09 14:02 | CCD ---
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 07:21:00 PM EDT [facility] Name Value Range Interpretation Code Description Data Suellen rce(s) Supporting Document(s) Hep C Ab-T Test Nonreactive Normal (applies to non-numeric results) [facility] Test Performed By: [facility] [address] [place] [address] Director: Sruthi Conner MD Hep Bs Ag Result T-Test Nonreactive Normal (applies to non -numeric results) [facility] Test Performed By: [facility] [address] [place] [address] Director: Sruthi Conner MD HBCT Nonreactive Normal (applies to non-numeric resu lts) [facility] Test Performed By: [facility] [address] [place] [address] Director: Sruthi Conner MD HAVM Nonreactive Normal (applies to non-numeric resu lts) [facility] Test Performed By: [facility] [address] [place] [address] Director: Sruthi Conner MD ID Date Data Source [id number] 03/28/2021 07:21:00 PM EDT [facility] Name Value Range Interpretation Code Description Data Suellen rce(s) Supporting Document(s) Syphilis Serology Nonreactive Normal (applies to non-numer ic results) [facility] Test Performed By: [facility] [address] [place] [address] Director: Sruthi Conner MD ID Date Data Source [id number] 03/28/2021 07:21:00 PM EDT [facility] Name Value Range Interpretation Code Description Data Suellen rce(s) Supporting Document(s) HIV 1/2 Ab p24 Ag Screen Nonreactive Normal (applies to non-numeric results) [facility] Test Performed By: [facility] [address] [place] [address] Director: Sruthi Conner MD ID Date Data Source [id number] 03/28/2021 11:32:00 AM EDT [facility] C&S IF INDICATED Name Value Range Interpretation Code Description Data Suellen rce(s) Supporting Document(s) Color,Urine Colorl-Dk Y Normal (applies to non-numeric res ults) [facility] Clarity,Urine Clear Normal (applies to non-numeric re sults) [facility] Specific [place],Urine 1.005-1.030 Normal (applies to non- numeric results) [facility] pH,Urine 5.0-8.0 Normal (applies to non-numeric resul ts) [facility] Protein,Urine Negative Normal (applies to non-numeric re sults) [facility] Glucose,Urine Negative Normal (applies to non-numeric re sults) [facility] Ketones,Urine Negative Normal (applies to non-numeric re sults) [facility] Blood,Urine Negative Normal (applies to non-numeric resu lts) [facility] Bilirubin,Urine Negative Normal (applies to non-numeric results) [facility] Urobilinogen,Urine 0.2-1.0 Normal (applies to non-numer ic results) [facility] Leukocyte Esterase,Urine Negative Normal (applies to non -numeric results) [facility] Nitrite,Urine Negative Normal (applies to non-numeric re sults) [facility] RBC,Urine None Seen Normal (applies to non-numeric resul ts) [facility] WBC,Urine None Seen [facility] Casts,Urine None Seen Normal (applies to non-numeric resu lts) [facility] Squamous Cells,Urine None Seen [facility] Bacteria,Urine None Seen [facility] ital ID Date Data Source [id number] 03/28/2021 09:52:00 PM EDT [facility] Name Value Range Interpretation Code Description Data Suellen rce(s) Supporting Document(s) Hepatitis C Virus Ab result Nonreactive Norm al (applies to non-numeric results) [facility] Test Performed By: [facility] [address] [place] [address] Director: Sruthi Conner MD Hep Bs Ag result T-Test Nonreactive Normal (applies to non -numeric results) [facility] Test Performed By: [facility] [address] [place] [address] Director: Sruthi Conner MD Hepatitis B Core Total result Nonreactive No rmal (applies to non-numeric results) [facility] Test Performed By: [place] [address] Director: Sruthi Conner MD Hepatitis A IgM result Nonreactive Normal (applies to non- numeric results) [facility] Test Performed By: [facility] [address] [place] [address] Director: Sruthi Conner MD ID Date Data Source [id number] 03/28/2021 09:52:00 PM EDT [facility] Name Value Range Interpretation Code Description Data Suellen rce(s) Supporting Document(s) Syphilis Serology result Nonreactive Normal (applies to non-numeric results) [facility] Test Performed By: [facility] [address] [place] [address] Director: Sruthi Conner MD ID Date Data Source [id number] 03/28/2021 09:52:00 PM EDT [facility] Name Value Range Interpretation Code Description Data Suellen rce(s) Supporting Document(s) HIV Screen result Nonreactive Normal (applies to non-numer ic results) [facility] Test Performed By: [facility] [address] [place] [address] Director: Sruthi Conner MD ID Date Data Source [id number] 03/28/2021 11:43:00 AM EDT [facility] Name Value Range Interpretation Code Description Data Suellen rce(s) Supporting Document(s) Sodium 144 mmol/L 136-145 Normal (applies to non-numeric resul ts) [facility] Potassium 3.5-5.1 Normal (applies to non-numeric resul ts) [facility] Chloride 103 mmol/L 98-107 Normal (applies to non-numeric resul ts) [facility] Carbon Dioxide CO2 21-32 Normal (applies to non-numer ic results) [facility] Anion Gap 5.0-16.0 Normal (applies to non-numeric resul ts) [facility] BUN 8 mg/dL 7-18 Normal (applies to non-numeric results) [facility] Creatinine,Serum 0.7-1.2 Normal (applies to non-numeric results) [facility] GFR >60 Normal (applies to non-numeric results) [facility] Glucose Level 95 mg/dL 60-99 Normal (applies to non-numeric re sults) [facility] Reference range is only applicable when patient is fasting Note the following drug interference: Sulfasalazine Sulfapyridine Can see falsely depressed Can see falsely elevated result with up to 17% results with up to 11% decrease in measurement increase in measurement Recommend patients be collected for this test prior to administration of either drug. Calcium 8.5-10.1 Normal (applies to non-numeric resul ts) [facility] ID Date Data Source [id number] 03/28/2021 11:43:00 AM EDT [facility] Name Value Range Interpretation Code Description Data Suellen rce(s) Supporting Document(s) Thyroid Stimulate Hormone TSH 0.358-3.74 No rmal (applies to non-numeric results) [facility] ID Date Data Source [id number] 03/28/2021 11:43:00 AM EDT [facility] Name Value Range Interpretation Code Description Data Suellen rce(s) Supporting Document(s) Beta HCG,Quantitative 1 mIU/mL Normal (applies to non-nu meric results) [facility] Non-preganant:0-5 mIU/mL 0. 2- Week: 5-50 mIU/mL 1-2 Weeks: 50-500 mIU/mL 2-3 Weeks: 100-5,000 mIU/mL 3-4 Weeks: 500-10,000 mIU/mL 4-5 Weeks: 1,000-50,000 mIU/mL 5-6 Weeks: 10,000-100,000 mIU/mL 6-8 Weeks: 15,000-200,000 mIU/mL 2-3 Months: 10,000-100,000 mIU/mL ID Date Data Source [id number] 03/28/2021 10:59:00 AM EDT [facility] Name Value Range Interpretation Code Description Data Suellen rce(s) Supporting Document(s) White Blood Count 3.5-10.5 Normal (applies to non-numeri c results) [facility] Red Blood Count 3.90-5.00 Below low normal [facility] Hemoglobin 12.0-15.5 Normal (applies to non-numeric resul ts) [facility] Hematocrit 34.9-44.5 Normal (applies to non-numeric resul ts) [facility] Mean Corpuscular Volume 81.2-95.1 Normal (applies to non- numeric results) [facility] Mean Corpuscular Hgb 25.6-32.2 Normal (applies to non-num elis results) [facility] Mean Corpuscular Hgb Conc 32.0-36.0 Normal (applies to no n-numeric results) [facility] Red Cell Distribution Width 11.9-15.5 Normal (appli es to non-numeric results) [facility] Platelet Count 322 x10 3/uL 150-450 Normal (applies to non-numeric results) [facility] Mean Platelet Volume 9.4-12.4 Below low normal [facility] Neutrophils% (Auto) 31.0-71.0 Normal (applies to non-nume nakul results) [facility] Lymphocytes% (Auto) 20.0-55.0 Normal (applies to non-nume nakul results) [facility] Monocytes% (Auto) 4.0-12.0 Normal (applies to non-numeri c results) [facility] Eosinophils% (Auto) 1.0-8.0 Normal (applies to non-nume nakul results) [facility] Basophils% (Auto) 0.0-2.0 Normal (applies to non-numeri c results) [facility] Immature Granulocytes% (Auto) 0.0-2.0 Normal (deanna lies to non-numeric results) [facility] Neutrophils# (Auto) 1.50-6.20 Normal (applies to non-nume nakul results) [facility] Lymphocytes# (Auto) 1.20-4.00 Normal (applies to non-nume nakul results) [facility] Monocytes# (Auto) 0.00-0.90 Normal (applies to non-numeri c results) [facility] Eosinophils# (Auto) 0.00-0.50 Normal (applies to non-nume nakul results) [facility] Basophils# (Auto) 0.00-0.20 Normal (applies to non-numeri c results) [facility] Immature Granulocytes# (Auto) 0.00-7.00 No rmal (applies to non-numeric results) [facility] ID Date Data Source [id number] 12/28/2020 09:29:00 AM EDT [facility] Name Value Range Interpretation Code Description Data Suellen rce(s) Supporting Document(s) Urine Culture Normal (applies to non-numeric re sults) [facility] ID Date Data Source [id number] 12/11/2020 12:27:00 PM [facility] Imaging Services Department Imaging Report [address] [place] [address] %(RAD)RES..mtdd.print.filter("line") Name: HUYEN CONNORS : 2000 Age/Sex: 20F Ordering Provider: YOUNG Erickson Med Rec #: [id number] Reg Status: DEP REF Room #: Date of Service: 12/09/20 Report Number: [id number] cc:JESUS Gandara; YOUNG Erickson Send Report To: [id number] US/US Transvaginal Reason for exam: PELVIC PAIN, [...] Date/Time: 12/09/20 1655 Transcribed Date/Time: 12/11/20 1227 Cutter Hot Knife: FAY Name Value Range Interpretation Code Description Data Suellen rce(s) Supporting Document(s) ID Date Data Source [id number] 11/30/2020 09:11:00 PM [facility] Name Value Range Interpretation Code Description Data Suellen rce(s) Supporting Document(s) Chlamydia,Urine Negative Normal (applies to non-numeric results) [facility] GC Urine Negative Normal (applies to non-numeric resul ts) [facility] Methodology: Second generation nucleic a chandrika amplification. ID Date Data Source [id number] 11/30/2020 02:46:00 AM [facility] Name Value Range Interpretation Code Description Data Suellen rce(s) Supporting Document(s) Free T4 (Free Thyroxine) 0.76-1.46 Normal (applies to non -numeric results) [facility] ID Date Data Source [id number] 11/30/2020 02:46:00 AM EST [facility] Name Value Range Interpretation Code Description Data Suellen rce(s) Supporting Document(s) Sodium 140 mmol/L 137-145 Normal (applies to non-numeric resul ts) [facility] Potassium 3.5-5.1 Normal (applies to non-numeric resul ts) [facility] Chloride 105 mmol/L 98-112 Normal (applies to non-numeric resul ts) [facility] Carbon Dioxide CO2 22.0-33.0 Normal (applies to non-numer ic results) [facility] Anion Gap 4.0-11.0 Normal (applies to non-numeric resul ts) [facility] BUN 7 mg/dL 7-17 Normal (applies to non-numeric resul ts) [facility] Creatinine 0.70-1.20 Normal (applies to non-numeric resul ts) [facility] GFR 79 mL/min >60 Normal (applies to non-numeric resul ts) [facility] Result based on MDRD formula. Glucose Level 125 mg/dL 74-99 Above high normal [facility] The reference range is only applicable w hen fasting. Calcium-Uncorrected 8.4-10.2 Normal (applies to non-nume nakul results) [facility] Corrected Calcium 8.4-10.2 Normal (applies to non-numeri c results) [facility] Bilirubin,Total 0.2-1.3 Normal (applies to non-numeric results) [facility] SGOT(AST) 18 U/L 14-36 Normal (applies to non-numeric resul ts) [facility] SGPT(ALT) 34 U/L 9-52 Normal (applies to non-numeric resul ts) [facility] Alkaline Phosphatase 98 U/L 38-126 Normal (applies to non-num elis results) [facility] can increase Alkaline Phosp le vels up to 2 times the normal adult value. Normal values for children and adolescents are 2 to 3 times the normal adult value. Total Protein 6.3-8.2 Normal (applies to non-numeric re sults) [facility] Albumin 3.5-5.0 Normal (applies to non-numeric resul ts) [facility] ID Date Data Source [id number] 11/30/2020 02:46:00 AM [facility] Value Range Interpretation Code Description Data Suellen rce(s) Supporting Document(s) Free T3 2.18-3.98 Normal (applies to non-numeric resul ts) [facility] ID Date Data Source [id number] 11/30/2020 02:46:00 AM [facility] Value Range Interpretation Code Description Data Suellen rce(s) Supporting Document(s) Beta HCG,Quantitative [id number] Below low normal [facility] ID Date Data Source [id number] 11/30/2020 02:46:00 AM [facility] Value Range Interpretation Code Description Data Suellen rce(s) Supporting Document(s) Thyroid Stimulate Hormone TSH 0.358-3.740 No rmal (applies to non-numeric results) [facility] ID Date Data Source [id number] 11/29/2020 09:28:00 PM [facility] Value Range Interpretation Code Description Data Suellen rce(s) Supporting Document(s) Hep C Ab-T Test Nonreactive Normal (applies to non-numeric results) [facility] ID Date Data Source [id number] 11/29/2020 09:28:00 PM [facility] Value Range Interpretation Code Description Data Suellen rce(s) Supporting Document(s) Hep Bs Ag Result T-Test Nonreactive Normal (applies to non -numeric results) [facility] ID Date Data Source [id number] 11/29/2020 09:28:00 PM [facility] Value Range Interpretation Code Description Data Suellen rce(s) Supporting Document(s) Syphilis Serology Nonreactive Normal (applies to non-numer ic results) [facility] ID Date Data Source [id number] 11/29/2020 09:28:00 PM [facility] Value Range Interpretation Code Description Data Suellen rce(s) Supporting Document(s) HIV 1/2 Ab p24 Ag Screen Nonreactive Normal (applies to non-numeric results) [facility] ID Date Data Source [id number] 11/29/2020 07:30:00 PM EST [facility] Name Value Range Interpretation Code Description Data Suellen rce(s) Supporting Document(s) White Blood Count 4.8-10.8 Normal (applies to non-numeri c results) [facility] Red Blood Count 3.68-5.22 Normal (applies to non-numeric results) [facility] Hemoglobin 11.2-15.7 Normal (applies to non-numeric resul ts) [facility] Hematocrit 34.1-44.9 Normal (applies to non-numeric resul ts) [facility] Mean Corpuscular Volume 81-99 Normal (applies to non- numeric results) [facility] Mean Corpuscular Hemoglobin 27.0-33.0 Normal (appli es to non-numeric results) [facility] Mean Corpuscular HGB Conc 32.0-36.0 Normal (applies to no n-numeric results) [facility] Red Cell Distribution Width 11.5-14.5 Normal (appli es to non-numeric results) [facility] Platelet Count 341 X10 3/uL 130-450 Normal (applies to non-numeric results) [facility] Mean Platelet Volume 9.5-12.7 Normal (applies to non-num elis results) [facility] Imm Grans% (AUTO) 0 % 0-2 Normal (applies to non-numeri c results) [facility] Neutrophils % (AUTO) 51 % 40-75 Normal (applies to non-num elis results) [facility] Lymphocytes % (AUTO) 41 % 21-46 Normal (applies to non-num elis results) [facility] Monocytes % (AUTO) 6 % 5-12 Normal (applies to non-numer ic results) [facility] Eosinophils % (AUTO) 2 % 1-5 Normal (applies to non-num elis results) [facility] Basophils % (AUTO) 1 % 0-1 Normal (applies to non-numer ic results) [facility] Imm Grans# (AUTO) 0.0-0.5 Normal (applies to non-numeri c results) [facility] Neutrophils # (AUTO) 1.5-8.1 Normal (applies to non-num elis results) [facility] Lymphocytes # (AUTO) 1.0-3.1 Normal (applies to non-num elis results) [facility] Monocytes # (AUTO) 0.2-1.3 Normal (applies to non-numer ic results) [facility] Eosinophils# (AUTO) 0.0-0.5 Normal (applies to non-nume nakul results) [facility] Basophils # (AUTO) 0.0-0.1 Normal (applies to non-numer ic results) [facility] ID Date Data Source [id number] 11/09/2020 07:37:00 AM EST [facility] Name Value Range Interpretation Code Description Data Suellen rce(s) Supporting Document(s) SARS-CoV-2 RNA INHOUSE Negative Normal (applies to non-n umeric results) [facility] THIS IS A [facility] REPORTABLE COMMUNICABLE DISEASE. Testing was performed using the [employer] COVID-19 MDx Assay. This test has been [...] be found at the following links: Providers: https://www.fda.gov/media/708463/download Patients : https://www.fda.gov/media/881430/download THIS IS A [facility] REPORTABLE COMMUNICABLE DISEASE Negative results do not preclude SARS-CoV-2 infection and should not be used as the sole basis for patient management decisions. Negative results must be combined with clinical observations,patient history, and epidemiological information. ID Date Data Source [id number] 11/08/2020 11:08:00 AM EST [facility] Name Value Range Interpretation Code Description Data Suellen rce(s) Supporting Document(s) Respiratory specimen severe acute respir atory syndrome coronavirus 2 (SARS-CoV-2) RNA Negative (qualifier value) [facility] This lab was ordered by [facility] and reported by . ID Date Data Source [id number] 11/08/2020 11:33:00 AM [facility] Collected By: Nurse Initials: akl Time Collected: 111 Collected By: Nurse Initials: akl Time Collected: 111 Name Value Range Interpretation Code Description Data Suellen rce(s) Supporting Document(s) Color,Urine Colorl-Dk Y Normal (applies to non-numeric res ults) [facility] Clarity,Urine Clear Normal (applies to non-numeric re sults) [facility] Specific [place],Urine 1.005-1.030 Normal (applies to non- numeric results) [facility] pH,Urine 5.0-8.0 Normal (applies to non-numeric resul ts) [facility] Protein,Urine Negative Normal (applies to non-numeric re sults) [facility] Glucose,Urine Negative Normal (applies to non-numeric re sults) [facility] Ketones,Urine Negative Normal (applies to non-numeric re sults) [facility] Blood,Urine Negative Normal (applies to non-numeric resu lts) [facility] Bilirubin,Urine Negative Normal (applies to non-numeric results) [facility] Urobilinogen,Urine 0.2-1.0 Normal (applies to non-numer ic results) [facility] Leukocyte Esterase,Urine Negative Normal (applies to non -numeric results) [facility] Nitrite,Urine Negative Normal (applies to non-numeric re sults) [facility] ID Date Data Source [id number] 11/08/2020 11:33:00 AM [facility] Collected By: Nurse Initials: akl Time Collected: 1115 Collected By: Nurse Initials: akl Time Collected: 111 Name Value Range Interpretation Code Description Data Suellen rce(s) Supporting Document(s) HCG,Ur Negative Normal (applies to non-numeric results) [facility] ID Date Data Source [id number] 09/20/2020 01:12:00 AM [facility] Procedure Performed By: [facility] [address] [place] [address] Director: Gael Conner MD Name Value Range Interpretation Code Description Data Suellen rce(s) Supporting Document(s) Urine Culture [facility] ID Date Data Source [id number] 09/20/2020 01:12:00 AM [facility] Name Value Range Interpretation Code Description Data Suellen rce(s) Supporting Document(s) TVRNA T. Vag (Females) Source Normal (applies t o non-numeric results) [facility] TVRNA T. Vag (Females) result Negative No rmal (applies to non-numeric results) [facility] Test Performed by: [place] [address] [employer] Operator: Vicente Umaña M.D. Ph.D.; CLIA# [id number] ID Date Data Source [id number] 09/20/2020 01:12:00 AM [facility] Name Value Range Interpretation Code Description Data Suellen rce(s) Supporting Document(s) Chlamydia,Urine Negative Normal (applies to non-numeric results) [facility] Test Performed By: [facility] [address] [place] [address] Director: Sruthi Conner MD . GC Urine Negative Normal (applies to non-numeric resul ts) [facility] Test Performed By: [facility] [address] [place] [address] Director: Sruthi Conner MD . Methodology: Second generation nucleic acid amplification. ID Date Data Source [id number] 09/04/2020 03:08:00 PM [facility] Name Value Range Interpretation Code Description Data Suellen rce(s) Supporting Document(s) TVRNA T. Vag (Females) Source Normal (applies t o non-numeric results) [facility] TVRNA T. Vag (Females) result Negative No rmal (applies to non-numeric results) [facility] Test Performed by: [place] [address] [employer] Operator: Vicente Umaña M.D. Ph.D.; CLIA# [id number] ID Date Data Source [id number] 09/02/2020 04:17:00 PM [facility] Name Value Range Interpretation Code Description Data Suellen rce(s) Supporting Document(s) Chlamydia,Urine result Negative Normal (applies to non-n umeric results) [facility] Test Performed By: [facility] [address] [place] [address] Director: Sruthi Conner MD . GC Urine result Negative Normal (applies to non-numeric results) [facility] Test Performed By: [facility] [address] [place] [address] Director: Sruthi Conner MD . Methodology: Second generation nucleic acid amplification. ID Date Data Source [id number] 09/02/2020 10:19:[address] [facility] spital Procedure Performed By: [facility] [address] [place] [address] Director: Gael Conner MD Name Value Range Interpretation Code Description Data [facility] rce(s) Supporting Document(s) Urine Culture [facility] ID Date Data Source [id number] 08/31/2020 01:01:00 PM [facility] Name Value Range Interpretation Code Description Data [facility] rce(s) Supporting Document(s) Color,Urine Colorl-Dk Y Normal (applies to non-numeric res ults) [facility] Clarity,Urine Clear Normal (applies to non-numeric re sults) [facility] Specific [place],Urine 1.005-1.030 Normal (applies to non- numeric results) [facility] pH,Urine 5.0-8.0 Normal (applies to non-numeric resul ts) [facility] Protein,Urine Negative Normal (applies to non-numeric re sults) [facility] Glucose,Urine Negative Normal (applies to non-numeric re sults) [facility] Ketones,Urine Negative Normal (applies to non-numeric re sults) [facility] Blood,Urine Negative Normal (applies to non-numeric resu lts) [facility] Bilirubin,Urine Negative Normal (applies to non-numeric results) [facility] Urobilinogen,Urine 0.2-1.0 Normal (applies to non-numer ic results) [facility] Leukocyte Esterase,Urine Negative [facility] Nitrite,Urine Negative Normal (applies to non-numeric re sults) [facility] RBC,Urine None Seen Normal (applies to non-numeric resul ts) [facility] WBC,Urine None Seen [facility] Casts,Urine None Seen Normal (applies to non-numeric resu lts) [facility] Squamous Cells,Urine None Seen [facility] Bacteria,Urine None Seen [facility] ital ID Date Data Source [id number] 08/31/2020 01:01:00 PM EST [facility] Name Value Range Interpretation Code Description Data Suellen rce(s) Supporting Document(s) HCG,Ur Negative Normal (applies to non-numeric results) [facility] Procedure Social History Code Duration Value Status Description Data Source(s ) Smoking 08/11/2021 12:00:00 AM EDT Never Smoker completed Never S moker [facility] Smoking 08/11/2021 12:00:00 AM EDT Never Smoker completed Never S moker eCW1 ([facility]) Smoking 08/11/2021 12:00:00 AM EDT Never Smoker completed Never S moker eCW1 ([facility]) Smoking 06/29/2021 12:00:00 AM EDT Never Smoker completed Never S moker eCW1 ([facility]) Smoking 06/29/2021 12:00:00 AM EDT Never Smoker completed Never S moker eCW1 ([facility]) Smoking 06/29/2021 12:00:00 AM EDT Never Smoker completed Never S moker eCW1 ([facility]) Smoking 04/28/2021 12:00:00 AM EDT Never Smoker completed Never S moker eCW1 ([facility]) Smoking 04/28/2021 12:00:00 AM EDT Never Smoker completed Never S moker eCW1 ([facility]) Smoking 03/28/2021 12:00:00 AM EDT Never Smoker completed Never S moker eCW1 ([facility]) Vital Signs ID Date Data Source UNK Name Value Range Interpretation Code Description Data Source(s) Body weight 180.6 [lb_av] 180.6 [lb_av] eCW1 ([facility]) Body weight 81.92 kg 81.92 kg eCW1 ([facility]) Body height 64 [in_i] 64 [in_i] eCW1 ([facility]) Body mass index (BMI) [Ratio] 30.28 kg/m2 30.28 kg/m2 eCW1 ([facility]) Heart rate 106 /min 106 /min eCW1 ([facility]) Respiratory rate 18 /min 18 /min eCW1 ([facility]) Body temperature 98.4 [degF] 98.4 [degF] eCW1 ( [facility]) Systolic blood pressure 143 mm[Hg] 143 mm[Hg] e CW1 ([facility]) Diastolic blood pressure 84 mm[Hg] 84 mm[Hg] eCW1 ([facility]) Body weight 176.4 [lb_av] 176.4 [lb_av] eCW1 ([facility]) Body weight 80.01 kg 80.01 kg eCW1 ([facility]) Body height 64 [in_i] 64 [in_i] eCW1 ([facility]) Body mass index (BMI) [Ratio] 30.28 kg/m2 30.28 kg/m2 eCW1 ([facility]) Heart rate 96 /min 96 /min eCW1 ([facility]) Respiratory rate 18 /min 18 /min eCW1 ([facility]) Body temperature 99.0 [degF] 99.0 [degF] eCW1 ( [facility]) Systolic blood pressure 126 mm[Hg] 126 mm[Hg] e CW1 ([facility]) Diastolic blood pressure 68 mm[Hg] 68 mm[Hg] eCW1 ([facility]) Body weight 179.2 [lb_av] 179.2 [lb_av] eCW1 ([facility]) Body height 64 [in_i] 64 [in_i] eCW1 ([facility]) Body mass index (BMI) [Ratio] 30.76 kg/m2 30.76 kg/m2 eCW1 ([facility]) Heart rate 83 /min 83 /min eCW1 ([facility]) Respiratory rate 18 /min 18 /min eCW1 ([facility]) Body temperature 97.6 [degF] 97.6 [degF] eCW1 ( [facility]) Systolic blood pressure 129 mm[Hg] 129 mm[Hg] e CW1 ([facility]) Diastolic blood pressure 67 mm[Hg] 67 mm[Hg] eCW1 ([facility]) Body height 64 [in_i] 64 [in_i] eCW1 ([facility]) Body weight 177.0 [lb_av] 177.0 [lb_av] eCW1 ([facility]) Heart rate 95 /min 95 /min eCW1 ([facility]) Respiratory rate 18 /min 18 /min eCW1 ([facility]) Body temperature 97.8 [degF] 97.8 [degF] eCW1 ( [facility]) Body mass index (BMI) [Ratio] 30.38 kg/m2 30.38 kg/m2 eCW1 ([facility]) Systolic blood pressure 125 mm[Hg] 125 mm[Hg] e CW1 ([facility]) Diastolic blood pressure 65 mm[Hg] 65 mm[Hg] eCW1 ([facility]) Systolic blood pressure 116 mm[Hg] 116 mm[Hg] M EDENT ([facility]) Diastolic blood pressure 79 mm[Hg] 79 mm[Hg] MEDENT ([facility]) Heart rate 95 /min 95 /min MEDENT ([facility] Respiratory rate 18 /min 18 /min MEDENT [facility] Oxygen saturation in Arterial blood by Pulse oximetry 98 % 98 % MEDENT ([facility]) Body temperature 98.3 [degF] 98.3 [degF] MEDENT ([facility]) Body weight 185.00 [lb_av] 185.00 [lb_av] JASMEETEN T ([facility]) Body height 64 [in_i] 64 [in_i] MEDJAY ([facility]) 5'4" Body mass index (BMI) [Ratio] 31.8 kg/m2 31.8 k g/m2 [facility] ID Date Data Source [id number] 11/23/2020 07:28:00 AM EST [facility] Name Value Range Interpretation Code Description Data Source(s) Weight Measurement Method 8 8 [facility] Weight 2960 2960 [facility] pital Temperature Source 7 7 [facility] Temperature [address] [facility] spital Respiratory Effort 1 1 [facility] Respiratory Rate 16 16 [facility] Pulse Assessment Method [address] [facility] Pulse Rate 84 84 [facility] pital Height [address] [facility] 141/82 141/82 [facility] Weight Measurement Method 8 8 [facility] Weight 2960 2960 [facility] pital Temperature Source 7 7 [facility] Temperature [address] [facility] spital Respiratory Effort 1 1 [facility] Respiratory Rate 16 16 [facility] Pulse Assessment Method [address] [facility] Pulse Rate 84 84 [facility] pital Height [address] [facility] Blood Pressure 141/82 141/82 [facility] Weight Measurement Method 8 8 [facility] Weight 2960 2960 [facility] pital Temperature Source 7 7 [facility] Temperature [address] [facility] spital Respiratory Effort 1 1 [facility] Respiratory Rate 16 16 [facility] Pulse Assessment Method [address] [facility] Pulse Rate 84 84 [facility] Height 64 64 [facility] Blood Pressure 141/82 141/82 [facility] Patient Treatment Plan of Care Planned Activity Planned Date Details Description Data Source (s) pregabalin 150 MG Oral Capsule [Lyrica] 08/11/2021 12:00:00 AM EDT [facility]CW[facility] pregabalin 150 MG Oral Capsule [Lyrica] 08/11/2021 12:00:00 AM EDT eCW1 ([facility]) pregabalin 150 MG Oral Capsule [Lyrica] 08/11/2021 12:00:00 AM EDT eCW1 ([facility]) Ibuprofen 800 MG Oral Tablet 06/29/2021 12:00:00 AM EDT eCW1 ([facility]) Ibuprofen 800 MG Oral Tablet 06/29/2021 12:00:00 AM EDT eCW1 ([facility]) pregabalin 100 MG Oral Capsule [Lyrica] 06/29/2021 12:00:00 AM EDT eCW1 ([facility]) Ibuprofen 800 MG Oral Tablet 06/29/2021 12:00:00 AM EDT eCW1 ([facility]) pregabalin 100 MG Oral Capsule [Lyrica] 06/29/2021 12:00:00 AM EDT eCW1 ([facility]) Ibuprofen 800 MG Oral Tablet 06/29/2021 12:00:00 AM EDT eCW1 ([facility]) pregabalin 100 MG Oral Capsule [Lyrica] 06/29/2021 12:00:00 AM EDT eCW1 ([facility]) Ibuprofen 800 MG Oral Tablet 06/29/2021 12:00:00 AM EDT eCW1 ([facility]) Ibuprofen 800 MG Oral Tablet 06/29/2021 12:00:00 AM EDT eCW1 ([facility]) pregabalin 75 MG Oral Capsule [Lyrica] 03/28/2021 12:00:00 AM EDT eCW1 ([facility])
--- NOTE | 2021-09-09 14:49 | REP ---
INDICATION: fell yest onto right side, fibromyalgia. COMPARISON: None. TECHNIQUE: AP and frogleg views of the right hip. FINDINGS: The right femoral head is smooth and rounded. Hip joint space is preserved. No fracture or subluxation is seen. Periarticular soft tissues are unremarkable. The visualized right hemipelvis is intact. IMPRESSION: No traumatic abnormality noted. <Electronically signed by Troy Calderón > 09/09/21 [id number]
[2021-09-09 15:12] VITALS: BP 123/74
== END 2021-09-09 15:13 | disposition home or self-care (01) ==
LOC: M ED 12:37
DX: G89.29 Other chronic pain (principal); M25.551 Pain in right hip; M79.7 Fibromyalgia; Z79.899 Other long term (current) drug therapy
CPT/HCPCS: 36415; 73502; 84702; 99283; Q0162

== ENCOUNTER → 2021-09-11 | Outpatient (CLI) | payer BC ==
[~2021-09-11] MED LIST changes: +IBUP80TA PO; +LAMO100T3 PO; +PREG150C PO; +VYVA30CA4 PO
--- NOTE | 2021-09-11 12:55 | REPVR ---
PROCEDURE INFORMATION: Exam: MR Lumbar Spine Without Contrast Exam date and time: 09/11/2021 9:07 AM Age: 21 years old Clinical indication: Pain; Lumbago TECHNIQUE: Imaging protocol: Multiplanar magnetic resonance images of the lumbar spine without intravenous contrast. COMPARISON: CR Hip, Ap,Lat 09/09/2021 2:31 PM FINDINGS: Vertebrae: Unremarkable. Spinal cord: Normal signal. No cord compression. L1-L2: No significant disc disease. No significant spinal canal stenosis. No neural foraminal stenosis. L2-L3: No significant disc disease. No significant spinal canal stenosis. No neural foraminal stenosis. L3-L4: No significant disc disease. No significant spinal canal stenosis. No neural foraminal stenosis. L4-L5: Disc desiccation, mild diffuse disc bulge with annular fissure and mild facet joint arthropathy without any significant central spinal canal stenosis or neural foraminal narrowing. L5-S1: Mild diffuse disc bulge without any significant central spinal canal stenosis or neural foraminal narrowing. Soft tissues: Unremarkable. IMPRESSION: L4-L5: Disc desiccation, mild diffuse disc bulge with annular fissure and mild facet joint arthropathy without any significant central spinal canal stenosis or neural foraminal narrowing. L5-S1: Mild diffuse disc bulge without any significant central spinal canal stenosis or neural foraminal narrowing. Electronically signed by: Marion Price On 09/11/2021 12:54:44 PM
== END ==
LOC: M RAD 08:05
PROVIDERS: ATTEND Anesthesiology
DX: R93.7 Abnormal findings on diagnostic imaging of other parts of musculoskeletal system (principal); M54.50 Low back pain, unspecified

== ENCOUNTER → 2021-09-14 | Outpatient (REF) | payer BC ==
[2021-09-14 22:02] LABS: APPEARANCE, URINE CLOUDY (CLEAR); BACTERIA, URINE AUTO 1+ (NEGATIVE); BILIRUBIN, URINE AUTO NEGATIVE (NEGATIVE); BLOOD, URINE BLOOD 1+ (NEGATIVE); COLOR, URINE YELLOW (YELLOW); GLUCOSE, URINE (UA) AUTO NEGATIVE (NEGATIVE); KETONE, URINE AUTO NEGATIVE (NEGATIVE); LEUKOCYTE ESTERASE, URINE AUTO TRACE (NEGATIVE); MUCUS, URINE SMALL (NEGATIVE); NITRITE, URINE AUTO NEGATIVE (NEGATIVE); PROTEIN, URINE AUTO NEGATIVE (NEGATIVE); RBC, URINE AUTO 2 /HPF (0-3); SPECIFIC GRAVITY URINE AUTO 1.016 (1.002-1.035); SQUAMOUS EPITHELIAL CELL UR AU 9 /HPF (0-6); UROBILINOGEN, URINE AUTO 0.2 mg/dL (0.0-2.0); WBC, URINE AUTO 27 /HPF (0-3)
[2021-09-14 23:30] LABS: GC DNA AMPLIFICATION NEGATIVE (NEGATIVE)
== END ==
LOC: M LAB REF 21:32
PROVIDERS: ATTEND Physician Assistant
DX: N39.0 Urinary tract infection, site not specified (principal)

== ENCOUNTER → 2021-10-09 | Outpatient (REF) | LOC: M LABSMTC 11:24 | PROVIDERS: ATTEND Family Medicine | DX: Z11.52 Encounter for screening for COVID-19 (principal) ==

== ENCOUNTER → 2021-11-03 | Outpatient (CLI) | payer BC | LOC: M RAD 13:04 | PROVIDERS: ATTEND Anesthesiology | DX: R10.2 Pelvic and perineal pain (principal) ==

== ENCOUNTER → 2022-01-02 | Outpatient (REF) ==
[2022-01-02 13:06] LABS: RSV AMPLIFICATION NEGATIVE (NEGATIVE)
== END ==
LOC: M EMP 12:16
PROVIDERS: ATTEND Family Medicine
DX: Z11.52 Encounter for screening for COVID-19 (principal)

== ENCOUNTER → 2022-04-04 | Outpatient (REF) | payer BC ==
[2022-04-04 13:04] LABS: HEMATOCRIT 36.3 % (36.0-47.0); HEMOGLOBIN 12.4 g/dl (12.0-15.5); MEAN CORPUSCULAR HEMOGLOBIN 31.4 pg (27.0-33.0); MEAN CORPUSCULAR HGB CONC 34.2 g/dl (32.0-36.5); MEAN CORPUSCULAR VOLUME 91.9 fl (80.0-96.0); PLATELET COUNT, AUTOMATED 173 10^3/uL (150-450); RED BLOOD COUNT 3.95 10^6/uL (4.00-5.40); WHITE BLOOD COUNT 6.8 10^3/uL (4.0-10.0)
[2022-04-04 13:40] LABS: ALBUMIN 4.3 GM/DL (3.2-5.2); ALT/SGPT 34 U/L (12-78); BILIRUBIN,TOTAL 0.4 MG/DL (0.2-1.0); BLOOD UREA NITROGEN 10 MG/DL (7-18); CALCIUM LEVEL 9.3 MG/DL (8.5-10.1); CARBON DIOXIDE LEVEL 24 MEQ/L (21-32); CHLORIDE LEVEL 108 MEQ/L (98-107); CREATININE FOR GFR 0.59 MG/DL (0.55-1.30); FREE T4 0.85 NG/DL (0.76-1.46); GLOMERULAR FILTRATION RATE > 60.0 (>60); GLUCOSE, FASTING 82 MG/DL (70-100); POTASSIUM SERUM 4.2 MEQ/L (3.5-5.1); RHEUMATOID FACTOR QUANT < 10.0 IU/ML (<15.0); SODIUM LEVEL 138 MEQ/L (136-145); TOTAL PROTEIN 7.2 GM/DL (6.4-8.2)
[2022-04-05 19:07] LABS: ANA (HEP2) Negative (.)
== END ==
LOC: M SFHCADAM 11:29
PROVIDERS: ATTEND Family Medicine
DX: I49.8 Other specified cardiac arrhythmias (principal); F31.9 Bipolar disorder, unspecified; F50.9 Eating disorder, unspecified; F90.8 Attention-deficit hyperactivity disorder, other type; A60.00 Herpesviral infection of urogenital system, unspecified; M79.7 Fibromyalgia

== ENCOUNTER → 2022-04-17 | Outpatient (CLI) | payer BC ==
[2022-04-17 21:30] LABS: ALBUMIN 4.2 GM/DL (3.2-5.2); BLOOD UREA NITROGEN 7 MG/DL (7-18); CARBON DIOXIDE LEVEL 26 MEQ/L (21-32); CHLORIDE LEVEL 105 MEQ/L (98-107); CREATININE FOR GFR 0.67 MG/DL (0.55-1.30); GLOMERULAR FILTRATION RATE > 60.0 (>60); GLUCOSE, FASTING 86 MG/DL (70-100); HCG, SERUM QUANTITATIVE 36939 MIU/ML; PHOSPHORUS LEVEL 4.5 MG/DL (2.5-4.9); POTASSIUM SERUM 3.9 MEQ/L (3.5-5.1); SODIUM LEVEL 135 MEQ/L (136-145)
== END ==
LOC: M LAB 16:49
PROVIDERS: ATTEND Physician Assistant
DX: R11.2 Nausea with vomiting, unspecified (principal)

== ENCOUNTER 2022-05-10 16:37 | Day surgery (SDC) | payer BC ==
[~2022-05-10] VITALS: Ht 162.6 cm; Wt 87.1 kg
[2022-05-10] MEDS ORDERED: MORPHINE 4 MG/ML 1ML VIAL/SYRINGE IV ONE ×2 (19:10→21:35)
[2022-05-10 19:40] LABS: BASO # 0.1 10^3/uL (0.0-0.2); BASO % 0.5 % (0.0-1.0); EOS # 0.2 10^3/uL (0.0-0.5); EOS % 1.9 % (0.0-3.0); HEMATOCRIT 33.2 % (36.0-47.0); HEMOGLOBIN 11.1 g/dl (12.0-15.5); LYMPH # 3.2 10^3/uL (1.5-5.0); LYMPH % 33.2 % (24.0-44.0); MEAN CORPUSCULAR HGB CONC 33.4 g/dl (32.0-36.5); MEAN CORPUSCULAR VOLUME 92.7 fl (80.0-96.0); MONO # 0.6 10^3/uL (0.0-0.8); MONO % 6.2 % (2.0-8.0); NEUTROPHILS # 5.6 10^3/uL (1.5-8.5); NEUTROPHILS % 57.8 % (36.0-66.0); PLATELET COUNT, AUTOMATED 304 10^3/uL (150-450); RED BLOOD COUNT 3.58 10^6/uL (4.00-5.40); WHITE BLOOD COUNT 9.6 10^3/uL (4.0-10.0)
[2022-05-10 20:00] LABS: INR 1.03
[2022-05-10 20:01] LABS: ERYTHROCYTE SEDIMENTATION RATE 18 mm/hr (0-20); PARTIAL THROMBOPLASTIN TIME 29.8 SECONDS (25.9-37.0)
[2022-05-10 20:08] LABS: ALBUMIN 3.7 GM/DL (3.2-5.2); ALT/SGPT 30 U/L (12-78); BILIRUBIN,DIRECT < 0.1 MG/DL (0.0-0.2); BILIRUBIN,TOTAL 0.4 MG/DL (0.2-1.0); BLOOD UREA NITROGEN 8 MG/DL (7-18); CALCIUM LEVEL 8.7 MG/DL (8.5-10.1); CARBON DIOXIDE LEVEL 25 MEQ/L (21-32); CHLORIDE LEVEL 108 MEQ/L (98-107); CREATININE FOR GFR 0.72 MG/DL (0.55-1.30); GLOMERULAR FILTRATION RATE > 60.0 (>60); GLUCOSE, FASTING 81 MG/DL (70-100); POTASSIUM SERUM 4.1 MEQ/L (3.5-5.1); SODIUM LEVEL 138 MEQ/L (136-145); TOTAL PROTEIN 7.1 GM/DL (6.4-8.2)
[2022-05-10 22:20] LABS: RSV AMPLIFICATION NEGATIVE (NEGATIVE)
[2022-05-10] MEDS ORDERED: DEBL1TAB PO (22:22)
[2022-05-10] MEDS ORDERED: VYVA30CA4 PO (22:22)
[2022-05-10] MEDS ORDERED: LAMO150T3 PO (22:22)
[2022-05-10] MEDS ORDERED: CLIN1GEL22 TOP (22:22)
[2022-05-10] MEDS ORDERED: METR-265 PO (22:22)
[2022-05-10] MEDS ORDERED: VALT1TAB PO (22:22)
[2022-05-10] MEDS ORDERED: DOXY-259 PO (22:22)
[2022-05-10] MEDS ORDERED: ADAP0.05 TOP (22:22)
[2022-05-10] MEDS ORDERED: ONDA-195 PO (22:22)
[2022-05-10] MEDS ORDERED: IBUP1TAB7 PO (22:22)
[2022-05-10] MEDS ORDERED: IMIT100T PO (22:22)
[2022-05-10] MEDS ORDERED: PROP20TA72 PO (22:22)
[2022-05-10] MEDS ORDERED: HOME MED LIST COMPLETE! XX SCH (22:25)
[2022-05-10] MEDS ORDERED: propofoL 500 MG/50 ML VIAL As Ordered ONE (22:48)
[2022-05-10] MEDS ORDERED: LIDOCAINE 2% 100MG/5ML SDV (FOR ANES.) As Ordered ONE (22:48)
[2022-05-10] MEDS ORDERED: MIDAZOLAM INJ 2MG/2ML VIAL (J2250 PER 1MG) As Ordered ONE (22:49)
[2022-05-10] MEDS ORDERED: fentaNYL 100 MCG/2 ML INJECTION As Ordered ONE (22:49)
[2022-05-10] MEDS ORDERED: DOXYCYCLINE HYCLATE 100MG/10ML VIAL As Ordered ONE (23:28)
[2022-05-10] MEDS ORDERED: KETOROLAC 60MG 2ML VIAL As Ordered ONE (23:33)
[2022-05-10] MEDS ORDERED: dexameTHASONE 4 MG/ML 1ML VIAL (J1100 PER 1MG) As Ordered ONE (23:33)
[2022-05-10] MEDS ORDERED: ACETAMINOPHEN 1000MG 100ML IV BTL (OFIRMEV) (J0131 PER 10MG) As Ordered ONE (23:33)
[2022-05-10] MEDS ORDERED: ONDANSETRON 4MG 2ML VIAL As Ordered ONE (23:33)
[2022-05-10] MEDS ORDERED: LIDOCAINE W/EPINEPHRINE 1% 20ML VIAL As Ordered ONE (23:37)
[2022-05-10] MEDS ORDERED: fentaNYL 100 MCG/2 ML INJECTION IV PRN (23:45)
[2022-05-10] MEDS ORDERED: MORPHINE 2 MG/ML 1ML VIAL IV PRN (23:45)
[2022-05-10] MEDS ORDERED: oxyCODONE 5MG TAB PO PRN (23:45)
[2022-05-10] MEDS ORDERED: ONDANSETRON 4MG 2ML VIAL IV PRN (23:45)
[2022-05-10] MEDS ORDERED: LR 1,000 ML IV SCH (23:45)
[2022-05-11] MEDS ORDERED: MEPERIDINE INJ 25 MG/ML VIAL (J2175) IV PRN (00:35)
[2022-05-11 01:20] VITALS: BP 117/60
== END 2022-05-11 00:46 | disposition home or self-care (01) ==
LOC: M ED 16:37 → M OROP 21:55
PROVIDERS: ATTEND Obstetrics & Gynecology
DX: O73.1 Retained portions of placenta and membranes, without hemorrhage (principal); F17.290 Nicotine dependence, other tobacco product, uncomplicated
CPT/HCPCS: 59812; 76830; 76856; 80048; 80076; 83605; 85025; 85384; 85610; 85652; 85730; 86850; 86900; 86901; 87631; 88305; 93976; 96374; 96376; 99284; J0131; J1100; J1885; J2250; J2270; J2405; J3010

== ENCOUNTER → 2022-06-28 | Outpatient (CLI) | payer BC ==
[~2022-06-28] MED LIST changes: +ADAP0.05 TOP; +CLIN1GEL22 TOP; +DEBL1TAB PO; +DOXY-259 PO; +IBUP1TAB7 PO; +IMIT100T PO; +LAMO150T3 PO; +METR-265 PO; +ONDA-195 PO; +PROP20TA72 PO; +VALT1TAB PO
== END ==
LOC: M PAIN 15:15
PROVIDERS: ATTEND Anesthesiology
DX: R10.2 Pelvic and perineal pain (principal); M79.606 Pain in leg, unspecified; G57.90 Unspecified mononeuropathy of unspecified lower limb; M53.3 Sacrococcygeal disorders, not elsewhere classified; M79.7 Fibromyalgia; F43.10 Post-traumatic stress disorder, unspecified; F31.9 Bipolar disorder, unspecified; F41.0 Panic disorder [episodic paroxysmal anxiety]; F50.81 Binge eating disorder; F41.1 Generalized anxiety disorder; R31.9 Hematuria, unspecified; M51.16 Intervertebral disc disorders with radiculopathy, lumbar region; F90.9 Attention-deficit hyperactivity disorder, unspecified type; N94.6 Dysmenorrhea, unspecified; Z87.891 Personal history of nicotine dependence; Z79.899 Other long term (current) drug therapy

== ENCOUNTER → 2022-07-17 | Outpatient (CLI) | payer BC ==
[~2022-07-17] MED LIST changes: +CARI1TAB7; +PREG150C; +SERT50TA29
== END ==
LOC: M PAIN 13:30
PROVIDERS: ATTEND Anesthesiology
DX: M54.50 Low back pain, unspecified (principal); G89.29 Other chronic pain; M79.7 Fibromyalgia; Z86.59 Personal history of other mental and behavioral disorders; Z87.891 Personal history of nicotine dependence; Z79.899 Other long term (current) drug therapy

== ENCOUNTER 2022-07-18 17:07 | Emergency (ER) | payer BC ==
[~2022-07-18] VITALS: Ht 162.6 cm; Wt 82.3 kg
[~2022-07-18 17:07] MED LIST changes: -CARI1TAB7; -PREG150C; -SERT50TA29
[2022-07-18] MEDS ORDERED: PREG150C (17:18)
[2022-07-18] MEDS ORDERED: CARI1TAB7 (17:18)
[2022-07-18] MEDS ORDERED: SERT50TA29 (17:18)
[2022-07-18 18:35] LABS: BLOOD UREA NITROGEN 8 MG/DL (7-18); CARBON DIOXIDE LEVEL 24 MEQ/L (21-32); CHLORIDE LEVEL 108 MEQ/L (98-107); CREATININE FOR GFR 0.78 MG/DL (0.55-1.30); GLOMERULAR FILTRATION RATE > 60.0 (>60); GLUCOSE, FASTING 92 MG/DL (70-100); POTASSIUM SERUM 4.6 MEQ/L (3.5-5.1); SODIUM LEVEL 137 MEQ/L (136-145)
[2022-07-18 18:43] LABS: HCG, SERUM QUALITATIVE NEGATIVE (NEGATIVE)
[2022-07-18 19:37] LABS: ALBUMIN 4.3 GM/DL (3.2-5.2); ALT/SGPT 30 U/L (12-78); BILIRUBIN,DIRECT < 0.1 MG/DL (0.0-0.2); BILIRUBIN,TOTAL 0.3 MG/DL (0.2-1.0); LIPASE 103 U/L (73-393); TOTAL PROTEIN 7.4 GM/DL (6.4-8.2)
[2022-07-18 20:01] LABS: BASO % 0.5 % (0.0-1.0); EOS # 0.1 10^3/uL (0.0-0.5); EOS % 1.7 % (0.0-3.0); HEMATOCRIT 36.3 % (36.0-47.0); LYMPH # 3.4 10^3/uL (1.5-5.0); LYMPH % 40.8 % (24.0-44.0); MEAN CORPUSCULAR HEMOGLOBIN 31.1 pg (27.0-33.0); MEAN CORPUSCULAR HGB CONC 33.1 g/dl (32.0-36.5); MONO # 0.5 10^3/uL (0.0-0.8); MONO % 6.2 % (2.0-8.0); NEUTROPHILS # 4.2 10^3/uL (1.5-8.5); NEUTROPHILS % 50.7 % (36.0-66.0); PLATELET COUNT, AUTOMATED 349 10^3/uL (150-450); RED BLOOD COUNT 3.86 10^6/uL (4.00-5.40); WHITE BLOOD COUNT 8.2 10^3/uL (4.0-10.0)
[2022-07-18] MEDS ORDERED: KETOROLAC 30 MG/ML 1ML VIAL IV ONE (21:45)
[2022-07-18] MEDS ORDERED: METOCLOPRAMIDE INJ 10MG/2ML VIAL (J2765 PER 1) IV ONE (21:45)
[2022-07-18] MEDS ORDERED: NS 1,000 ML IV ONE (21:45)
[2022-07-18] MEDS ORDERED: diphenhydrAMINE 50MG/ML VIAL (J1200) IV ONE (21:45)
[2022-07-18 23:17] VITALS: BP 146/75
== END 2022-07-18 23:18 | disposition home or self-care (01) ==
LOC: M ED 17:07
DX: G43.909 Migraine, unspecified, not intractable, without status migrainosus (principal); R10.9 Unspecified abdominal pain; M79.7 Fibromyalgia
CPT/HCPCS: 74176; 80048; 80076; 81002; 83605; 83690; 84703; 85025; 96361; 96374; 99284; J1200; J1885; J2765

== ENCOUNTER → 2022-07-24 | Outpatient (CLI) | payer BC ==
[~2022-07-24] MED LIST changes: +CARI1TAB7; +PREG150C; +SERT50TA29
== END ==
LOC: M PAIN 14:45
PROVIDERS: ATTEND Anesthesiology
DX: M54.50 Low back pain, unspecified (principal); G89.29 Other chronic pain; M79.7 Fibromyalgia; Z86.59 Personal history of other mental and behavioral disorders; Z87.891 Personal history of nicotine dependence; Z79.899 Other long term (current) drug therapy

== ENCOUNTER → 2022-07-26 | Outpatient (CLI) | payer BC | LOC: M RAD 07:24 | PROVIDERS: ATTEND Anesthesiology | DX: M54.10 Radiculopathy, site unspecified (principal) ==

== ENCOUNTER → 2022-08-02 | Outpatient (CLI) | payer BC | LOC: M SOG 08:19 | PROVIDERS: ATTEND Orthopaedic Surgery | DX: R10.2 Pelvic and perineal pain (principal) ==

== ENCOUNTER → 2022-08-08 | Outpatient (CLI) | payer BC | LOC: M PAIN 13:00 | PROVIDERS: ATTEND Anesthesiology | DX: M25.559 Pain in unspecified hip (principal); M54.50 Low back pain, unspecified; G43.709 Chronic migraine without aura, not intractable, without status migrainosus; F43.10 Post-traumatic stress disorder, unspecified; F41.0 Panic disorder [episodic paroxysmal anxiety]; F50.81 Binge eating disorder; F41.1 Generalized anxiety disorder; R31.9 Hematuria, unspecified; N94.6 Dysmenorrhea, unspecified; M51.16 Intervertebral disc disorders with radiculopathy, lumbar region; M79.7 Fibromyalgia; F90.9 Attention-deficit hyperactivity disorder, unspecified type; N93.8 Other specified abnormal uterine and vaginal bleeding; Z87.891 Personal history of nicotine dependence; Z79.891 Long term (current) use of opiate analgesic; Z79.899 Other long term (current) drug therapy; Z88.8 Allergy status to other drugs, medicaments and biological substances ==

== ENCOUNTER → 2022-08-15 | Outpatient (CLI) | payer BC ==
[2022-08-15 16:29] LABS: HEMATOCRIT 34.2 % (36.0-47.0); HEMOGLOBIN 11.4 g/dl (12.0-15.5); MEAN CORPUSCULAR HEMOGLOBIN 30.9 pg (27.0-33.0); MEAN CORPUSCULAR HGB CONC 33.3 g/dl (32.0-36.5); MEAN CORPUSCULAR VOLUME 92.7 fl (80.0-96.0); PLATELET COUNT, AUTOMATED 306 10^3/uL (150-450); RED BLOOD COUNT 3.69 10^6/uL (4.00-5.40)
[2022-08-15 17:02] LABS: ERYTHROCYTE SEDIMENTATION RATE 7 mm/hr (0-20)
[2022-08-15 17:20] LABS: ALBUMIN 4.2 GM/DL (3.2-5.2); ALT/SGPT 32 U/L (12-78); BILIRUBIN,TOTAL 0.3 MG/DL (0.2-1.0); BLOOD UREA NITROGEN 6 MG/DL (7-18); CALCIUM LEVEL 8.9 MG/DL (8.5-10.1); CARBON DIOXIDE LEVEL 28 MEQ/L (21-32); CHLORIDE LEVEL 104 MEQ/L (98-107); CREATININE FOR GFR 0.82 MG/DL (0.55-1.30); GLOMERULAR FILTRATION RATE > 60.0 (>60); GLUCOSE, FASTING 78 MG/DL (70-100); POTASSIUM SERUM 3.9 MEQ/L (3.5-5.1); RHEUMATOID FACTOR QUANT < 10.0 IU/ML (<15.0); SODIUM LEVEL 140 MEQ/L (136-145); URIC ACID 4.3 MG/DL (2.6-6.0)
== END ==
LOC: M LAB 15:58
PROVIDERS: ATTEND Anesthesiology
DX: M54.50 Low back pain, unspecified (principal)

== ENCOUNTER → 2022-08-27 | Outpatient (CLI) | payer BC | LOC: M PAIN 12:45 | PROVIDERS: ATTEND Anesthesiology | DX: M25.559 Pain in unspecified hip (principal); M79.606 Pain in leg, unspecified; M79.7 Fibromyalgia; Z86.59 Personal history of other mental and behavioral disorders; Z87.891 Personal history of nicotine dependence; Z88.8 Allergy status to other drugs, medicaments and biological substances; Z79.899 Other long term (current) drug therapy ==

== ENCOUNTER → 2022-09-12 | Outpatient (CLI) | payer BC | LOC: M LAB 14:11 | PROVIDERS: ATTEND Family Medicine | DX: Z01.84 Encounter for antibody response examination (principal) ==

== ENCOUNTER → 2022-09-27 | Outpatient (REF) | LOC: M EMP 11:14 | PROVIDERS: ATTEND Family Medicine | DX: Z11.52 Encounter for screening for COVID-19 (principal) ==

== ENCOUNTER → 2022-10-03 | Outpatient (CLI) | payer BC | LOC: M PAIN 10:30 → M TMPAIN 10:30 | PROVIDERS: ATTEND Anesthesiology | DX: M25.559 Pain in unspecified hip (principal); M79.606 Pain in leg, unspecified; M79.7 Fibromyalgia; G89.29 Other chronic pain; Z86.69 Personal history of other diseases of the nervous system and sense organs; Z86.59 Personal history of other mental and behavioral disorders; Z87.891 Personal history of nicotine dependence; Z88.8 Allergy status to other drugs, medicaments and biological substances; Z79.899 Other long term (current) drug therapy ==

== ENCOUNTER → 2022-10-15 | Outpatient (CLI) | payer BC | LOC: M PAIN 09:00 | PROVIDERS: ATTEND Anesthesiology | DX: M79.10 Myalgia, unspecified site (principal); M79.18 Myalgia, other site; F43.10 Post-traumatic stress disorder, unspecified; F33.9 Major depressive disorder, recurrent, unspecified; F41.0 Panic disorder [episodic paroxysmal anxiety]; R31.9 Hematuria, unspecified; N94.6 Dysmenorrhea, unspecified; N93.8 Other specified abnormal uterine and vaginal bleeding; M51.16 Intervertebral disc disorders with radiculopathy, lumbar region; M79.7 Fibromyalgia; N80.9 Endometriosis, unspecified; F90.9 Attention-deficit hyperactivity disorder, unspecified type; Z79.891 Long term (current) use of opiate analgesic; Z79.899 Other long term (current) drug therapy; Z88.8 Allergy status to other drugs, medicaments and biological substances ==

== ENCOUNTER → 2022-10-29 | Outpatient (CLI) | payer BC | LOC: M ADAMS 11:15 | PROVIDERS: ATTEND Anesthesiology | DX: M79.7 Fibromyalgia (principal); Z53.8 Procedure and treatment not carried out for other reasons ==

== ENCOUNTER → 2022-11-06 | Outpatient (REF) | payer BC ==
[2022-11-06 13:41] LABS: C REACTIVE PROTEIN QUANTITATIV < 0.40 MG/DL (<1.0)
[2022-11-06 13:42] LABS: ALBUMIN 3.8 G/DL (3.2-5.2); ALKALINE PHOSPHATASE 76 U/L (46-116); ALT/SGPT 25 U/L (7.0-40); AST/SGOT 22 U/L (<34); BILIRUBIN,TOTAL 0.3 MG/DL (0.3-1.2); BLOOD UREA NITROGEN 13 MG/DL (9-23); CALCIUM LEVEL 8.5 MG/DL (8.5-10.1); CARBON DIOXIDE LEVEL 28 MMOL/L (20-31); CHLORIDE LEVEL 105 MMOL/L (98-107); CREATININE FOR GFR 0.73 MG/DL (0.55-1.30); GLOMERULAR FILTRATION RATE > 60.0 (>60); GLUCOSE, FASTING 83 MG/DL (60-100); SODIUM LEVEL 138 MMOL/L (136-145); TOTAL PROTEIN 6.7 G/DL (5.7-8.2)
[2022-11-06 13:50] LABS: BASO % 0.5 % (0.0-1.0); EOS # 0.2 10^3/uL (0.0-0.5); EOS % 2.6 % (0.0-3.0); HEMATOCRIT 35.3 % (36.0-47.0); HEMOGLOBIN 11.5 g/dl (12.0-15.5); LYMPH # 2.5 10^3/uL (1.5-5.0); LYMPH % 43.6 % (24.0-44.0); MEAN CORPUSCULAR HEMOGLOBIN 30.9 pg (27.0-33.0); MEAN CORPUSCULAR HGB CONC 32.6 g/dl (32.0-36.5); MEAN CORPUSCULAR VOLUME 94.9 fl (80.0-96.0); MONO # 0.4 10^3/uL (0.0-0.8); MONO % 6.8 % (2.0-8.0); NEUTROPHILS # 2.7 10^3/uL (1.5-8.5); NEUTROPHILS % 46.3 % (36.0-66.0); PLATELET COUNT, AUTOMATED 325 10^3/uL (150-450); RED BLOOD COUNT 3.72 10^6/uL (4.00-5.40); WHITE BLOOD COUNT 5.7 10^3/uL (4.0-10.0)
[2022-11-06 14:54] LABS: ERYTHROCYTE SEDIMENTATION RATE < 1 mm/hr (0-20)
== END ==
LOC: M SFHCRHEU 08:58
PROVIDERS: ATTEND Internal Medicine Rheumatology
DX: M35.3 Polymyalgia rheumatica (principal); M35.00 Sjogren syndrome, unspecified; I73.00 Raynaud's syndrome without gangrene

== ENCOUNTER → 2022-11-08 | Outpatient (CLI) | payer BC | LOC: M RAD 15:58 | PROVIDERS: ATTEND Physician Assistant Medical | DX: J32.9 Chronic sinusitis, unspecified (principal) ==

== ENCOUNTER → 2022-11-12 | Outpatient (CLI) | payer BC | LOC: M RAD 14:11 | PROVIDERS: ATTEND Internal Medicine Rheumatology | DX: M35.3 Polymyalgia rheumatica (principal); I73.00 Raynaud's syndrome without gangrene; M35.00 Sjogren syndrome, unspecified ==

== ENCOUNTER → 2022-11-22 | Outpatient (CLI) | payer BC | LOC: M PLAIMG 13:15 | PROVIDERS: ATTEND Anesthesiology | DX: R10.2 Pelvic and perineal pain (principal) ==

== ENCOUNTER → 2022-12-05 | Outpatient (CLI) | payer BC | LOC: M PAIN 14:45 | PROVIDERS: ATTEND Anesthesiology | DX: M25.559 Pain in unspecified hip (principal); M79.18 Myalgia, other site; M79.7 Fibromyalgia; G43.909 Migraine, unspecified, not intractable, without status migrainosus; Z86.59 Personal history of other mental and behavioral disorders; Z87.891 Personal history of nicotine dependence; Z88.8 Allergy status to other drugs, medicaments and biological substances; Z79.899 Other long term (current) drug therapy ==

== ENCOUNTER → 2022-12-06 | Outpatient (CLI) | payer BC | LOC: M LABSMTC 09:14 | PROVIDERS: ATTEND Anesthesiology | DX: Z01.818 Encounter for other preprocedural examination (principal); Z11.52 Encounter for screening for COVID-19 ==

== ENCOUNTER → 2022-12-11 | Outpatient (CLI) | payer BC ==
[~2022-12-11] MED LIST changes: +BUPIVACAINE HCL 0.25% 10ML VIAL As Ordered ONE; +BUPIVACAINE HCL 0.25% 30ML VIAL As Ordered ONE; +TRIAMCINOLONE ACETONIDE SUSP 40MG/ML 1ML VIAL As Ordered ONE; +diazePAM 5MG TABLET As Ordered ONE; +oxyCODONE 5MG TAB As Ordered ONE
== END ==
LOC: M PAIN 13:30
PROVIDERS: ATTEND Anesthesiology
DX: M79.18 Myalgia, other site (principal); F43.10 Post-traumatic stress disorder, unspecified; F31.9 Bipolar disorder, unspecified; F41.1 Generalized anxiety disorder; M51.16 Intervertebral disc disorders with radiculopathy, lumbar region; M79.7 Fibromyalgia; Z87.891 Personal history of nicotine dependence; Z88.8 Allergy status to other drugs, medicaments and biological substances
CPT/HCPCS: 20553; J3301; S0020

== ENCOUNTER → 2023-01-25 | Outpatient (CLI) | payer BC ==
[~2023-01-25] MED LIST changes: -BUPIVACAINE HCL 0.25% 10ML VIAL As Ordered ONE; -BUPIVACAINE HCL 0.25% 30ML VIAL As Ordered ONE; -TRIAMCINOLONE ACETONIDE SUSP 40MG/ML 1ML VIAL As Ordered ONE; -diazePAM 5MG TABLET As Ordered ONE; -oxyCODONE 5MG TAB As Ordered ONE
== END ==
LOC: M PAIN 15:45
PROVIDERS: ATTEND Anesthesiology
DX: G89.29 Other chronic pain (principal); R10.2 Pelvic and perineal pain; M54.16 Radiculopathy, lumbar region

== ENCOUNTER → 2023-03-22 | Outpatient (CLI) | payer BC | LOC: M PAIN 15:15 | PROVIDERS: ATTEND Anesthesiology | DX: R10.2 Pelvic and perineal pain (principal); M25.559 Pain in unspecified hip; M51.16 Intervertebral disc disorders with radiculopathy, lumbar region; F43.10 Post-traumatic stress disorder, unspecified; F41.0 Panic disorder [episodic paroxysmal anxiety]; F50.81 Binge eating disorder; F41.1 Generalized anxiety disorder; M79.7 Fibromyalgia; G43.909 Migraine, unspecified, not intractable, without status migrainosus; F17.290 Nicotine dependence, other tobacco product, uncomplicated; Z79.899 Other long term (current) drug therapy; Z88.8 Allergy status to other drugs, medicaments and biological substances ==

== ENCOUNTER → 2023-03-27 | Outpatient (REF) | LOC: M EMP 10:41 | PROVIDERS: ATTEND Family Medicine | DX: Z11.52 Encounter for screening for COVID-19 (principal) ==

== ENCOUNTER → 2023-05-07 | Outpatient (REF) ==
[~2023-05-07] MED LIST changes: +ADAP0.02 TOP; -ADAP0.05 TOP
== END ==
LOC: M EMP 07:36
PROVIDERS: ATTEND Family Medicine
DX: Z53.9 Procedure and treatment not carried out, unspecified reason (principal)

== ENCOUNTER → 2023-05-31 | Outpatient (REF) | payer BC ==
[2023-05-31 17:00] LABS: HEMATOCRIT 39.7 % (36.0-47.0); HEMOGLOBIN 13.1 g/dl (12.0-15.5); MEAN CORPUSCULAR HEMOGLOBIN 30.6 pg (27.0-33.0); MEAN CORPUSCULAR VOLUME 92.8 fl (80.0-96.0); PLATELET COUNT, AUTOMATED 337 10^3/uL (150-450); RED BLOOD COUNT 4.28 10^6/uL (4.00-5.40); WHITE BLOOD COUNT 5.3 10^3/uL (4.0-10.0)
[2023-05-31 17:41] LABS: ALBUMIN 3.9 G/DL (3.2-5.2); ALKALINE PHOSPHATASE 80 U/L (46-116); ALT/SGPT 54 U/L (7.0-40); AST/SGOT 28 U/L (<34); BILIRUBIN,TOTAL 0.4 MG/DL (0.3-1.2); BLOOD UREA NITROGEN 7 MG/DL (9-23); CALCIUM LEVEL 9.6 MG/DL (8.5-10.1); CARBON DIOXIDE LEVEL 30 MMOL/L (20-31); CHLORIDE LEVEL 104 MMOL/L (98-107); CREATININE FOR GFR 0.77 MG/DL (0.55-1.30); GLOMERULAR FILTRATION RATE > 60.0 (>60); GLUCOSE, FASTING 77 MG/DL (60-100); MAGNESIUM LEVEL 1.7 MG/DL (1.8-2.4); POTASSIUM SERUM 4.5 MMOL/L (3.5-5.1); SODIUM LEVEL 140 MMOL/L (136-145); TOTAL PROTEIN 6.8 G/DL (5.7-8.2)
[2023-05-31 17:42] LABS: THYROID STIMULATING HORMONE 1.292 uIU/ML (0.55-4.78)
[2023-05-31 17:43] LABS: FOLATE 13.42 NG/ML (>5.4); TOTAL 25(OH) VITAMIN D 48.2 NG/ML (20.0-100.0)
[2023-05-31 17:44] LABS: VITAMIN B12 LEVEL 505 PG/ML (211-911)
[2023-06-05 02:11] LABS: VITAMIN B1 LEVEL WHOLE BLOOD 81.8 nmol/L (66.5-200.0); VITAMIN B6,PYRIDOXAL PHOSPHATE 19.1 ug/L (3.4-65.2)
== END ==
LOC: M SFHCADAM 14:27
PROVIDERS: ATTEND Family Medicine
DX: M79.7 Fibromyalgia (principal); F90.8 Attention-deficit hyperactivity disorder, other type; I49.8 Other specified cardiac arrhythmias

== ENCOUNTER → 2023-06-12 | Outpatient (CLI) | payer BC ==
[~2023-06-12] MED LIST changes: -PREG150C; -PREG150C PO; +PREG150C2; +PREG150C2 PO
== END ==
LOC: M PAIN 15:00
PROVIDERS: ATTEND Anesthesiology
DX: M25.551 Pain in right hip (principal); M25.552 Pain in left hip; M54.50 Low back pain, unspecified; M47.816 Spondylosis without myelopathy or radiculopathy, lumbar region; R10.2 Pelvic and perineal pain; G89.29 Other chronic pain; F43.10 Post-traumatic stress disorder, unspecified; F31.9 Bipolar disorder, unspecified; F41.0 Panic disorder [episodic paroxysmal anxiety]; F41.1 Generalized anxiety disorder; M79.7 Fibromyalgia; G43.909 Migraine, unspecified, not intractable, without status migrainosus; Z79.899 Other long term (current) drug therapy; Z88.8 Allergy status to other drugs, medicaments and biological substances

== ENCOUNTER → 2023-08-09 | Outpatient (CLI) | payer BC ==
[~2023-08-09] MED LIST changes: +ADDE25CA PO; +BUPR2SUB SL; +CEFD300C42 PO; +DULC10SU2 PR; +ISOVUE-300 61% 100ML VIAL As Ordered ONE; +LIDOCAINE 1% MDV 20ML VIAL As Ordered ONE; +MECL-209 PO; +MIRA3350 PO; +PROHANCE 279.3MG/ML 5ML VIAL As Ordered ONE
== END ==
LOC: M RAD 06:51
PROVIDERS: ATTEND Student in an Organized Health Care Education/Training Program
DX: S73.102A Unspecified sprain of left hip, initial encounter (principal); M25.852 Other specified joint disorders, left hip; M25.851 Other specified joint disorders, right hip; X58.XXXA Exposure to other specified factors, initial encounter; Y92.9 Unspecified place or not applicable
CPT/HCPCS: 27093; 73723; 77002; A9576; Q9967

== ENCOUNTER → 2023-08-13 | Outpatient (REF) ==
[~2023-08-13] MED LIST changes: -ISOVUE-300 61% 100ML VIAL As Ordered ONE; -LIDOCAINE 1% MDV 20ML VIAL As Ordered ONE; -PROHANCE 279.3MG/ML 5ML VIAL As Ordered ONE
== END ==
LOC: M EMP 07:35
PROVIDERS: ATTEND Family Medicine
DX: Z11.52 Encounter for screening for COVID-19 (principal)

== ENCOUNTER → 2023-09-10 | Outpatient (REF) ==
[~2023-09-10] MED LIST changes: +CEFD1CAP9 PO; -CEFD300C42 PO
[2023-09-10 12:30] LABS: RSV AMPLIFICATION POSITIVE (NEGATIVE)
== END ==
LOC: M EMP 11:01
PROVIDERS: ATTEND Family Medicine
DX: Z11.52 Encounter for screening for COVID-19 (principal)

== ENCOUNTER → 2023-09-12 | Outpatient (CLI) | payer BC ==
[~2023-09-12] MED LIST changes: +ISOVUE-300 61% 100ML VIAL As Ordered ONE; +LIDOCAINE 1% MDV 20ML VIAL As Ordered ONE; +PROHANCE 279.3MG/ML 5ML VIAL As Ordered ONE
== END ==
LOC: M RAD 06:35
PROVIDERS: ATTEND Student in an Organized Health Care Education/Training Program
DX: M25.851 Other specified joint disorders, right hip (principal); M25.852 Other specified joint disorders, left hip; S73.101A Unspecified sprain of right hip, initial encounter; X58.XXXA Exposure to other specified factors, initial encounter; Y92.9 Unspecified place or not applicable
CPT/HCPCS: 27093; 73723; 77002; A9576; Q9967

== ENCOUNTER → 2023-09-21 | Outpatient (CLI) | payer BC ==
[~2023-09-21] MED LIST changes: -ISOVUE-300 61% 100ML VIAL As Ordered ONE; -LIDOCAINE 1% MDV 20ML VIAL As Ordered ONE; -PROHANCE 279.3MG/ML 5ML VIAL As Ordered ONE
== END ==
LOC: M RAD 15:36
PROVIDERS: ATTEND Physician Assistant
DX: M54.12 Radiculopathy, cervical region (principal)

== ENCOUNTER → 2023-10-29 | Outpatient (CLI) | payer BC ==
[~2023-10-29] MED LIST changes: +ISOVUE-300 61% 100ML VIAL As Ordered ONE; +LIDOCAINE 1% MDV 20ML VIAL As Ordered ONE; +TRIAMCINOLONE ACETONIDE SUSP 40MG/ML 1ML VIAL As Ordered ONE
== END ==
LOC: M RAD 13:58
PROVIDERS: ATTEND Student in an Organized Health Care Education/Training Program
DX: M25.852 Other specified joint disorders, left hip (principal); M25.851 Other specified joint disorders, right hip
CPT/HCPCS: 20610; 77002; J3301; Q9967

== ENCOUNTER → 2023-11-01 | Outpatient (CLI) | payer BC ==
[~2023-11-01] MED LIST changes: -ISOVUE-300 61% 100ML VIAL As Ordered ONE; -LIDOCAINE 1% MDV 20ML VIAL As Ordered ONE; -TRIAMCINOLONE ACETONIDE SUSP 40MG/ML 1ML VIAL As Ordered ONE
[2023-11-01 16:29] LABS: BASO % 0.1 % (0.0-1.0); HEMATOCRIT 38.9 % (36.0-47.0); HEMOGLOBIN 13.2 g/dl (12.0-15.5); LYMPH # 1.6 10^3/uL (1.5-5.0); LYMPH % 13.9 % (24.0-44.0); MEAN CORPUSCULAR HEMOGLOBIN 31.1 pg (27.0-33.0); MEAN CORPUSCULAR HGB CONC 33.9 g/dl (32.0-36.5); MEAN CORPUSCULAR VOLUME 91.7 fl (80.0-96.0); MONO # 0.5 10^3/uL (0.0-0.8); MONO % 4.4 % (2.0-8.0); NEUTROPHILS # 9.4 10^3/uL (1.5-8.5); NEUTROPHILS % 80.8 % (36.0-66.0); PLATELET COUNT, AUTOMATED 413 10^3/uL (150-450); RED BLOOD COUNT 4.24 10^6/uL (4.00-5.40); WHITE BLOOD COUNT 11.6 10^3/uL (4.0-10.0)
[2023-11-01 16:36] LABS: ERYTHROCYTE SEDIMENTATION RATE 3 mm/hr (0-20)
[2023-11-01 16:51] LABS: C REACTIVE PROTEIN QUANTITATIV < 0.40 MG/DL (<1.0)
[2023-11-01 16:54] LABS: RHEUMATOID FACTOR QUANT < 3.5 IU/ML (<14)
== END ==
LOC: M WUC 14:41
PROVIDERS: ATTEND Physician Assistant
DX: M25.512 Pain in left shoulder (principal)

== ENCOUNTER 2023-12-24 17:15 | Emergency (ER) | payer BC ==
[~2023-12-24] VITALS: Ht 162.6 cm; Wt 64.1 kg
[2023-12-24] MEDS ORDERED: OXYC20TA2 PO (17:51)
[2023-12-24] MEDS ORDERED: CLON0.5T2 PO (17:51)
[2023-12-24] MEDS ORDERED: NUCY75TA11 PO (17:51)
[2023-12-24] MEDS ORDERED: AMPH1CAP4 (17:51)
[2023-12-24] MEDS: ONDANSETRON 4MG 2ML VIAL IV ONE (19:18)
[2023-12-24] MEDS: NS 1,000 ML IV ONE (19:19)
[2023-12-24 19:28] LABS: BASO % 0.2 % (0.0-1.0); HEMATOCRIT 40.6 % (36.0-47.0); HEMOGLOBIN 14.4 g/dl (12.0-15.5); LYMPH # 1.2 10^3/uL (1.5-5.0); LYMPH % 9.7 % (24.0-44.0); MEAN CORPUSCULAR HEMOGLOBIN 31.3 pg (27.0-33.0); MEAN CORPUSCULAR HGB CONC 35.5 g/dl (32.0-36.5); MEAN CORPUSCULAR VOLUME 88.3 fl (80.0-96.0); MONO # 0.2 10^3/uL (0.0-0.8); MONO % 1.8 % (2.0-8.0); NEUTROPHILS # 11.3 10^3/uL (1.5-8.5); NEUTROPHILS % 87.8 % (36.0-66.0); PLATELET COUNT, AUTOMATED 331 10^3/uL (150-450); WHITE BLOOD COUNT 12.8 10^3/uL (4.0-10.0)
[2023-12-24 19:52] LABS: LIPASE 30 U/L (12-53)
[2023-12-24 19:55] LABS: ALBUMIN 4.5 G/DL (3.2-5.2); ALKALINE PHOSPHATASE 103 U/L (46-116); ALT/SGPT 95 U/L (7.0-40); AST/SGOT 52 U/L (<34); BILIRUBIN,DIRECT 0.4 MG/DL (<0.4); BILIRUBIN,TOTAL 1.2 MG/DL (0.3-1.2); BLOOD UREA NITROGEN 11 MG/DL (9-23); CALCIUM LEVEL 10.7 MG/DL (8.5-10.1); CARBON DIOXIDE LEVEL 26 MMOL/L (20-31); CHLORIDE LEVEL 103 MMOL/L (98-107); CREATININE FOR GFR 0.77 MG/DL (0.55-1.30); GLOMERULAR FILTRATION RATE > 60.0 (>60); GLUCOSE, FASTING 104 MG/DL (60-100); POTASSIUM SERUM 3.8 MMOL/L (3.5-5.1); SODIUM LEVEL 136 MMOL/L (136-145)
[2023-12-24 19:59] LABS: HCG, SERUM QUALITATIVE NEGATIVE (NEGATIVE)
[2023-12-24] MEDS: PANTOPRAZOLE 40MG VIAL IV ONE (20:57)
[2023-12-24] MEDS: KETOROLAC 30 MG/ML 1ML VIAL IV ONE (20:57)
[2023-12-24 21:24] LABS: BARBITURATES URINE NEGATIVE (NEGATIVE); BENZODIAZEPINES URINE NEGATIVE (NEGATIVE); COCAINE METABOLITE URINE NEGATIVE (NEGATIVE); METHADONE URINE NEGATIVE (NEGATIVE); OPIATES URINE NEGATIVE (NEGATIVE); PHENCYCLIDINE URINE NEGATIVE (NEGATIVE)
[2023-12-24] MEDS: MORPHINE 2 MG/ML 1ML VIAL IV ONE (21:40)
[2023-12-24] MEDS: GASTROGRAFIN SOLUTION 30ML PO SCH (21:40)
[2023-12-24 21:42] LABS: AMPHETAMINES LEVEL URINE POSITIVE (NEGATIVE); CANNABINOIDS URINE POSITIVE (NEGATIVE)
[2023-12-24] MEDS ORDERED: ISOVUE-370 76% 100ML VIAL As Ordered ONE (22:49)
[2023-12-24] MEDS: MORPHINE 4 MG/ML 1ML VIAL IV PRN (23:50)
[2023-12-25] MEDS: BISACODYL 10MG SUPP PR ONE (00:19)
[2023-12-25] MEDS ORDERED: TIZA10TA PO (00:50)
[2023-12-25] MEDS ORDERED: ADDE10TA PO (00:50)
[2023-12-25] MEDS ORDERED: ONDA8TAB8 PO (00:50)
[2023-12-25] MEDS ORDERED: HOME MED LIST COMPLETE! XX SCH (00:55)
[2023-12-25] MEDS: MOM 30ML SUSPENSION UDC PO ONE (01:00)
[2023-12-25] MEDS ORDERED: BISA10SU27 PR (01:11)
[2023-12-25] MEDS ORDERED: MIRA3350 PO (01:11)
[2023-12-25 01:14] VITALS: BP 126/65; TEMP 98.2; O2SAT 100
== END 2023-12-25 01:29 | disposition home or self-care (01) ==
LOC: M ED 17:15
DX: K59.00 Constipation, unspecified (principal); F17.290 Nicotine dependence, other tobacco product, uncomplicated; Z88.8 Allergy status to other drugs, medicaments and biological substances; Z79.1 Long term (current) use of non-steroidal anti-inflammatories (NSAID); Z79.899 Other long term (current) drug therapy
CPT/HCPCS: 74177; 80048; 80076; 80307; 81001; 83690; 84703; 85025; 96361; 96374; 96375; 96376; 99284; C9113; J1885; J2405; Q9963; Q9967

== ENCOUNTER → 2024-03-20 | Outpatient (CLI) | payer BC ==
[~2024-03-20] MED LIST changes: +ADDE10TA PO; +AMPH1CAP4; +BISA10SU27 PR; +CLON0.5T2 PO; +NUCY75TA11 PO; +ONDA-284 PO; +OXYC20TA2 PO; +TIZA10TA PO
== END ==
LOC: M RAD 16:49
PROVIDERS: ATTEND Student in an Organized Health Care Education/Training Program
DX: M79.661 Pain in right lower leg (principal); M79.89 Other specified soft tissue disorders

== ENCOUNTER → 2024-11-24 | Outpatient (REF) | payer BC ==
[~2024-11-24] MED LIST changes: +CARI-555; -CARI1TAB7
[2024-11-24 19:39] LABS: Trichomonas vaginalis (AMP) NOT DETECTED (NEGATIVE)
[2024-11-24 20:03] LABS: GC DNA AMPLIFICATION NEGATIVE (NEGATIVE)
== END ==
LOC: M PLALAB 14:56
PROVIDERS: ATTEND Obstetrics & Gynecology
DX: Z12.4 Encounter for screening for malignant neoplasm of cervix (principal); Z20.2 Contact with and (suspected) exposure to infections with a predominantly sexual mode of transmission; R87.610 Atypical squamous cells of undetermined significance on cytologic smear of cervix (ASC-US); B37.31 Acute candidiasis of vulva and vagina
CPT/HCPCS: 87624; 87661; 87810; 87850; G0123

== ENCOUNTER → 2025-07-14 | Outpatient (CLI) | payer BC | LOC: M WHC 15:03 | PROVIDERS: ATTEND Obstetrics & Gynecology | DX: N93.9 Abnormal uterine and vaginal bleeding, unspecified (principal) ==